=== PATIENT | female | born 1960 | race Caucasian/White ===

== ENCOUNTER 2018-02-02 09:49 | Inpatient (IN) | payer OTHER ==
--- NOTE | 2018-02-02 10:10 | PDOC ---
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 Lowe, with concern for osteomyelitis in her left foot. Pt denies pain or discomfort on arrival. She is a diabetic with peripheral neuropathy and a history of poor wound. Developed a open wound between fourth and fifth metatarsal approx. 3 weeks ago. MRI was obtained of extremity two weeks ago. Denies bleeding or discharge from the wound. Follows weekly with Dr. Lowe. MRI dated 01/22/2018 revealed likely osteomyelitis of proximal phalanx of fourth toe. PCP: Dr. Juan Miguel Leong Drying Room Attendant: Dr. Lowe Medical Hx: - Breast Cancer, s/p L mastectomy approx. 15 years ago - Diabetes - Chronic diabetic foot wound - Peripheral neuropathy Past History - Past Medical History Allergies/Adverse Reactions: Allergies Allergy/AdvReac Type Severity Reaction Status Date / Time Penicillins Allergy Unknown Verified 02/02/18 09:52 Home Medications: Ambulatory Orders Glimepiride [Amaryl -] 4 mg PO DAILY@0700 #30 tablet 03/15/15 Frzgz-Xtlnsnr-Jrirmchr Tablet 1 tab PO DAILY 12/05/15 Zinc 50 mg PO DAILY 06/10/17 Metformin HCl 500 mg PO BID 01/06/18 Vitamin D - 1,000 mg PO DAILY 01/06/18 Anemia: No Asthma: No Cancer: Yes (breast) Cardiac Disorders: No CVA: No COPD: No CHF: No Dementia: No Diabetes: Yes GI Disorders: No Disorders: No HTN: No Hypercholesterolemia: No Liver Disease: No Seizures: No Thyroid Disease: No Other medical history: chr diabetic foot wound - Surgical History Abdominal Surgery: Yes Appendectomy: No Cardiac Surgery: No Cholecystectomy: No Lung Surgery: No Neurologic Surgery: No Orthopedic Surgery: No - Suicide/Smoking/Psychosocial Hx Smoking Status: No Smoking History: Never smoked Have you smoked in the past 12 months: No Number of Cigarettes Smoked Daily: 0 Hx Alcohol Use: No Drug/Substance Use Hx: No Substance Use Type: None Review of Systems - Review of Systems Able to Perform ROS?: Yes Comments:: In addition to that documented in the HPI above, the additional ROS was obtained : Constitutional: Denies fevers or chills Eyes: Denies vision changes ENMT: Denies sore throat CV: Denies chest pain Resp: Denies SOB GI: Denies vomiting or diarrhea *Physical Exam - Vital Signs Last Vital Signs Temp Pulse Resp BP Pulse Ox 97.9 F 85 16 153/45 L 99 02/02/18 09:54 02/02/18 09:54 02/02/18 09:54 02/02/18 09:54 02/02/18 09:54 - Physical Exam Comments: Constitutional: Well-developed, well-nourished female in no acute distress or obvious discomfort. Found semi-fowlers in hospital bed. Alert and oriented x4. Answered all questions appropriately and completely. Speech was non-labored, non -pressured. HEENT: Normocephalic. No obvious external signs of trauma. Hearing grossly normal. No nasal discharge. Neck is supple, trachea is midline. Cardiovascular: Regular rate and regular rhythm. No murmur, rubs, clicks, or gallops. Peripheral pulses: Radial pulses full. Respiratory: Breathing unlabored. Equal chest rise and fall. Clear to auscultation bilaterally. No stridor, no wheezing, no rhonchi. Neuro: Alert and oriented. Moving all four extremities spontaneously. Skin: Warm and dry. 2-3mm circular wound between left 4th and 5th metatarsals with devitalized tissue. No bleeding, purulent discharge, warmth, or overlying cellulitis lesions. No lymphatic streaking. Psych: Affect: appropriate. Mood: normal. ED Treatment Course - LABORATORY CBC & Chemistry Diagram: 02/02/18 10:59 02/02/18 10:59 Medical Decision Making - Medical Decision Making *Reviewed vital signs, nursing notes, and prior visit documentation (if available). Dr. Lowe called ED and prior to pts arrival. Requested CBC, CMP, ESR, CRP , and pre-op labs. Additionally, requested the pt NOT be started on antibiotics. 11:35 Telephone page sent to Dr. Leong for admission. Type and screen hemolyzed. Reordered. 12:[address] Leong regarding admission. Will contact Dr. Lowe and will call back. 13:[address] Leong. States his partner, Dr. Edy Hung will admit the pt to med/surg on inpatient status. No additional orders dictated. *DC/Admit/Observation/Transfer Diagnosis at time of Disposition: Acute osteomyelitis of metatarsal bone of left foot - Discharge Dispostion Condition at time of disposition: Stable Decision to Admit order: Yes - Referrals Referrals: Lisa Newton [Primary Care Provider] - - Patient Instructions - Post Discharge Activity
--- NOTE | 2018-02-02 10:41 | PDOC ---
Attending Attestation - HPI HPI: 02/02/18 10:44 The patient is a 58 year old female, with a significant past medical history of left breast CA s/p left mastectomy, diabetes w/ neuropathy in bilateral LEs ( taking metformin and glipizide), who presents to the emergency department with a small wound between 4th and 5th metatarsal sent by wound care today for admission. She reports a history of wounds to this foot in the past. The patient denies chest pain, shortness of breath, headache and dizziness. The patient denies fever, chills, nausea, vomit, diarrhea and constipation. The patient denies dysuria, frequency, urgency and hematuria. Allergies: Penicillins Past surgical history: Hysterectomy, Mastectomy (left breast) Social history: Denies toxic habits - Medical Decision Making 02/02/18 10:44 Documentation prepared by Dorothea Tong, acting as medical coding technician for Wilman Santiago MD <Dorothea Tong - Last Filed: 02/02/18 10:44> - Resident Resident Name: Christopher Conley - ED Attending Attestation I have performed the following: I have examined & evaluated the patient, The case was reviewed & discussed with the resident, I agree w/resident's findings & plan, Exceptions are as noted - Physicial Exam PE: 02/02/18 14:43 Reviewed Residents PE - Medical Decision Making Patient sent to the emergency department for debridement for potential osteomyelitis Podiatry would like to hold on antibiotics at this time cultures will be obtained intraoperatively <Wilman Santiago - Last Filed: 02/02/18 14:43>
[2018-02-02 11:15] LABS: BASO % 0.9 % (0-2.0); EOS % 1.6 % (0-4.5); HEMATOCRIT 36.7 % (32.4-45.2); HEMOGLOBIN 12.5 GM/dL (10.7-15.3); LYMPH % 19.9 % (8-40); MCH 31.9 pg (25.7-33.7); MCHC 34.1 g/dl (32.0-36.0); MEAN CELL VOLUME 93.7 fl (80-96); MEAN PLT VOLUME 10.1 fl (7.5-11.1); MONO % 5.7 % (3.8-10.2); NEUT % 71.9 % (42.8-82.8); PLATELET COUNT 250 K/MM3 (134-434); RBC 3.92 M/mm3 (3.60-5.2); RDW 12.2 % (11.6-15.6)
[2018-02-02 11:31] LABS: INR 0.93 (0.83-1.09)
[2018-02-02 11:44] LABS: ALBUMIN 3.6 g/dl (3.4-5.0); ALK PHOS 124 U/L (45-117); ANION GAP 7 MMOL/L (8-16); BILIRUBIN,TOTAL 0.3 mg/dL (0.2-1); BLOOD UREA NITROGEN 19 mg/dL (7-18); CALCIUM 8.6 mg/dL (8.5-10.1); CHLORIDE 98 mmol/L (98-107); CO2 29 mmol/L (21-32); POTASSIUM 4.5 mmol/L (3.5-5.1); SGOT/AST 25 U/L (15-37); SGPT/ALT 41 U/L (13-61); SODIUM 133 mmol/L (136-145); TOT PROT 6.9 g/dl (6.4-8.2)
[2018-02-02 12:00] LABS: GLUCOSE,RANDOM 362 mg/dL (74-106)
[2018-02-02 13:07] LABS: ERYTHROCYTE SEDIMENTATION RATE 23 mm/hr (0-30)
[2018-02-02] MEDS ORDERED: ACETAMINOPHEN 325 MG TABLET (FP) PO PRN (19:18)
--- NOTE | 2018-02-02 19:22 | HP ---
Admitting History and Physical - Primary Care Physician PCP: Christian Leong - Admission History of Present Illness: pt seen/ examined in er. 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 Lowe, with concern for osteomyelitis in her left foot. Pt denies pain or discomfort on arrival. She is a diabetic with peripheral neuropathy and a history of poor wound. Developed a open wound between fourth and fifth metatarsal approx. 3 weeks ago. MRI was obtained of extremity two weeks ago. Denies bleeding or discharge from the wound. Follows weekly with Dr. Lowe. MRI dated 01/22/2018 revealed likely osteomyelitis of proximal phalanx of fourth toe. PCP: Dr. Juan Miguel Leong Labor Contractor: Dr. Lowe Medical Hx: - Breast Cancer, s/p L mastectomy approx. 15 years ago - Diabetes - Chronic diabetic foot wound - Peripheral neuropathy pt going for bone biopsy in am Awake/ comfortable denies pain History Source: Patient, Medical Record Limitations to Obtaining History: No Limitations - Past Medical History Heme/Onc: Yes: Cancer (left breast) Endocrine: Yes: Diabetes Mellitus - Past Surgical History Past Surgical History: Yes: Hysterectomy, Mastectomy (left breast) - Smoking History Smoking history: Never smoked Have you smoked in the past 12 months: No Aproximately how many cigarettes per day: 0 - Alcohol/Substance Use Hx Alcohol Use: No Home Medications - Allergies Allergies/Adverse Reactions: Allergies Allergy/AdvReac Type Severity Reaction Status Date / Time Penicillins Allergy Unknown Verified 02/02/18 09:52 - Home Medications Home Medications: Ambulatory Orders Glimepiride [Amaryl -] 4 mg PO DAILY@0700 #30 tablet 03/15/15 Nnxbd-Npijyev-Nvmpizch Tablet 1 tab PO DAILY 12/05/15 Zinc 50 mg PO DAILY 06/10/17 Metformin HCl 500 mg PO BID 01/06/18 Vitamin D - 1,000 mg PO DAILY 01/06/18 Family Disease History - Family Disease History Family Disease History: CA: Mother (kidney) Review of Systems - Review of Systems Constitutional: reports: No Symptoms Eyes: reports: No Symptoms HENT: reports: No Symptoms Neck: reports: No Symptoms Cardiovascular: reports: No Symptoms Respiratory: reports: No Symptoms Gastrointestinal: reports: No Symptoms Genitourinary: reports: No Symptoms Neurological: reports: No Symptoms Endocrine: reports: No Symptoms Psychiatric: reports: No Symptoms Physical Examination Vital Signs: Vital Signs Temperature 98.1 F 02/02/18 18:59 Pulse Rate 82 02/02/18 18:59 Respiratory Rate 20 02/02/18 18:59 Blood Pressure 164/90 02/02/18 18:59 O2 Sat by Pulse Oximetry (%) 98 02/02/18 18:07 Constitutional: Yes: No Distress, Calm Eyes: Yes: Conjunctiva Clear HENT: Yes: WNL Neck: Yes: WNL, Supple Cardiovascular: Yes: Regular Rate and Rhythm Respiratory: Yes: CTA Bilaterally Gastrointestinal: Yes: Normal Bowel Sounds, Soft Extremities: Yes: Erythema Edema: No Neurological: Yes: Alert Labs: CBC, BMP 02/02/18 10:59 02/02/18 10:59 Imaging - Results EKG: Pending Problem List - Problems (1) Acute osteomyelitis of metatarsal bone of left foot Code(s): M86.172 - OTHER ACUTE OSTEOMYELITIS, LEFT ANKLE AND FOOT (2) Hyperglycemia Code(s): R73.9 - HYPERGLYCEMIA, UNSPECIFIED (3) Uncontrolled type 2 diabetes mellitus Code(s): E11.65 - TYPE 2 DIABETES MELLITUS WITH HYPERGLYCEMIA Assessment/Plan Admit meds reviewed start on levemir uncontrolled diabetes ekg - hold po diabetic meds hold abx - before biopsy - consult i/d dvt prophylaxis will follow Discussed with i/d . will follow Discussed with pts pmd also. time spend approx 40 min in examining/ documenting and coordating care.
--- NOTE | 2018-02-02 19:48 | CON.ID ---
Consult Consult Specialty:: Infectious Diseases Reason for Consultation:: OM (L) 4th toe - History of Present Illness Chief Complaint: Nonhealing Wound (L) 4th toe History of Present Illness: Ms. Purcell is a 58 yr olf female diabetic with peripheral neuropathy and a history of poor wound. I had seen her previously and treated her for OM in the past. She reports that she developed an open wound between fourth and fifth metatarsal approx. 3 weeks ago. MRI was obtained of extremity two weeks ago, which revealed changes suggestive of OM (L) foot. She denies bleeding or discharge from the wound. She is admitted for bone biopsy. - History Source History Provided By: Patient, Medical Record Limitations to Obtaining History: No Limitations - Past Medical History Endocrine: Yes: Diabetes Mellitus - Past Surgical History Past Surgical History: Yes: Hysterectomy, Mastectomy (left breast) - Alcohol/Substance Use Hx Alcohol Use: No - Smoking History Smoking history: Never smoked Have you smoked in the past 12 months: No Aproximately how many cigarettes per day: 0 Home Medications - Allergies Allergies/Adverse Reactions: Allergies Allergy/AdvReac Type Severity Reaction Status Date / Time Penicillins Allergy Unknown Verified 02/02/18 09:52 - Home Medications Home Medications: Ambulatory Orders Glimepiride [Amaryl -] 4 mg PO DAILY@0700 #30 tablet 03/15/15 Flxmy-Dkpbpyb-Xthjzznt Tablet 1 tab PO DAILY 12/05/15 Zinc 50 mg PO DAILY 06/10/17 Metformin HCl 500 mg PO BID 01/06/18 Vitamin D - 1,000 mg PO DAILY 01/06/18 Family Disease History - Family Disease History Family Disease History: CA: Mother (kidney) Review of Systems - Review of Systems Constitutional: denies: Chills, Fever, Night Sweats Cardiovascular: denies: Chest Pain, Palpitations Respiratory: denies: Cough, SOB Gastrointestinal: denies: Abdominal Pain Integumentary: reports: Wound Physical Exam Vital Signs: Vital Signs Temperature 98.1 F 02/02/18 18:59 Pulse Rate 82 02/02/18 18:59 Respiratory Rate 20 02/02/18 18:59 Blood Pressure 164/90 02/02/18 18:59 O2 Sat by Pulse Oximetry (%) 98 02/02/18 18:07 Constitutional: Yes: Well Nourished Eyes: Yes: PERRL Neck: Yes: Supple Cardiovascular: Yes: Regular Rate and Rhythm Respiratory: Yes: CTA Bilaterally Gastrointestinal: Yes: Normal Bowel Sounds, Soft Extremities: Yes: Other ((L) foot with deformity. small ulcer interdigital space 4/5 (R) foot with deformity, eschar plantar sole 1st MT. No drainage or erythema) Labs: CBC, BMP 02/02/18 10:59 02/02/18 10:59 Imaging - Results X-ray: Report Reviewed Problem List - Problems (1) Diabetic foot ulcer Code(s): E11.621 - TYPE 2 DIABETES MELLITUS WITH FOOT ULCER; L97.509 - NON- PRESSURE CHRONIC ULCER OTH PRT UNSP FOOT W UNSP SEVERITY (2) Chronic osteomyelitis involving left ankle and foot Code(s): M86.672 - OTHER CHRONIC OSTEOMYELITIS, LEFT ANKLE AND FOOT Assessment/Plan Pt with DM, nonhealing Ulcer (L) foot OM on MRI Agree bone biopsy and c/s. No antibiotics for now, await c/s results.
[2018-02-02 21:08] VITALS: BMI 23.8
[2018-02-02] MEDS: HEPARIN NA (PORCINE) 5,000 UNITS/ML 1ML VIAL SQ SCH (21:51)
[2018-02-02] MEDS ORDERED: INSULIN (LEVEMIR) 100 UNITS/ML UNITS SQ SCH (22:00)
[2018-02-03] MEDS ORDERED: INSULIN (LEVEMIR) 100 UNITS/ML UNITS SQ ONE (06:19)
[2018-02-03] MEDS ORDERED: INSULIN SLIDING SCALE (NOVOLOG) 1 VIAL SQ SCH (07:00)
[2018-02-03 07:40] LABS: BASO % 0.9 % (0-2.0); EOS % 2.9 % (0-4.5); HEMATOCRIT 38.7 % (32.4-45.2); HEMOGLOBIN 12.9 GM/dL (10.7-15.3); LYMPH % 41.2 % (8-40); MCH 31.1 pg (25.7-33.7); MCHC 33.4 g/dl (32.0-36.0); MEAN CELL VOLUME 93.1 fl (80-96); MEAN PLT VOLUME 9.3 fl (7.5-11.1); MONO % 8.3 % (3.8-10.2); NEUT % 46.7 % (42.8-82.8); PLATELET COUNT 263 K/MM3 (134-434); RBC 4.16 M/mm3 (3.60-5.2); RDW 12.1 % (11.6-15.6); WHITE BLOOD COUNT 7.8 K/mm3 (4.0-10.0)
[2018-02-03 07:53] LABS: ALBUMIN 3.5 g/dl (3.4-5.0); ALK PHOS 121 U/L (45-117); ANION GAP 7 MMOL/L (8-16); BILIRUBIN,TOTAL 0.3 mg/dL (0.2-1); BLOOD UREA NITROGEN 16 mg/dL (7-18); CALCIUM 9.4 mg/dL (8.5-10.1); CHLORIDE 101 mmol/L (98-107); CO2 28 mmol/L (21-32); CREATININE 0.9 mg/dL (0.55-1.3); GLUCOSE,RANDOM 104 mg/dL (74-106); SGOT/AST 28 U/L (15-37); SGPT/ALT 38 U/L (13-61); SODIUM 137 mmol/L (136-145); TOT PROT 6.9 g/dl (6.4-8.2)
--- NOTE | 2018-02-03 09:42 | CONSULT ---
Consult - text type - Consultation Consultation Note: Podiatry Consultation: 58 year old neuropathic diabetic F well known to me from wound healing center presented last week with left 4th interspace diabetic ulcer, (+) osteomyelitis. Discussed treatment options based on MRI with patient at that time and we both agreed operative management with bone biopsy would be necessary. Notes ulcer is mostly improved but does note depth to the ulcer. Patient ambulates excessively on the feet. Denies F/V/N/C/SOB/CP. Afebrile. PMHx: DM, HTN, Breast CA s/p mastectomy Meds: noted ALL: PCN MEGHAN: L foot: pedal pulses palpable, TG wnl, CFT brisk to all toes. There is a fourth interspace diabetic ulcer that probes to capsule/proximal phalanx, no purulent drainage, no fluctuance, no streaking cellulitis, no signs of active infection. Minimal tenderness to palpation. MRI L foot: (+) bone marrow edema proximal phalanx fourth digit and fourth metatarsal head WBC: 7.8 Imp: 58 year old DM F with left fourth interspace diabetic ulcer (+) osteomyelitis 1. NPO. For OR today for bone biopsy, fourth digit arthroplasty 2. Will f/u OR cultures/path postoperatively 3. ID input appreciated 4. Will follow Tono Lowe DPM
[2018-02-03] MEDS: HEPARIN NA (PORCINE) 5,000 UNITS/ML 1ML VIAL SQ SCH ×2 (12:54→22:20)
--- NOTE | 2018-02-03 12:56 | PN ---
Progress Note (short form) - Note Progress Note: no complaints will be going for OR today for debridement, bone culture Vital Signs - 24 hr 02/02/18 02/02/18 02/02/18 17:57 18:07 18:59 Temperature 98 F 97.9 F 98.1 F Pulse Rate 82 Pulse Rate [ 67 77 Left Radial] Respiratory 16 18 20 Rate Blood Pressure 164/90 Blood Pressure 145/63 159/77 [Right Arm] O2 Sat by Pulse 99 98 Oximetry (%) 02/02/18 02/03/18 20:20 06:32 Temperature 98.1 F 98.1 F Pulse Rate 76 72 Pulse Rate [ Left Radial] Respiratory 18 20 Rate Blood Pressure 115/66 140/73 Blood Pressure [Right Arm] O2 Sat by Pulse 98 Oximetry (%) Current Medications Generic Name Dose Route Start Last Admin Trade Name Freq PRN Reason Stop Dose Admin Acetaminophen 650 mg 02/02/18 19:18 Tylenol - PO Q4H PRN PAIN LEVEL 1-5 Heparin Sodium (Porcine) 5,000 unit 02/02/18 22:00 02/03/18 12:54 Heparin - SQ Not Given BID [facility] Insulin Aspart 1 vial 02/03/18 07:00 02/03/18 06:07 Novolog Vial Sliding Scale - SQ Not Given BIDAC [facility] Protocol Insulin Detemir 10 units 02/02/18 22:00 02/02/18 21:52 Levemir Vial SQ 10 unit HS [facility] Administration Laboratory Results - last 24 hr 02/02/18 02/02/18 02/02/18 10:59 13:07 19:25 WBC RBC Hgb Hct MCV MCH MCHC RDW Plt Count MPV Absolute Neuts (auto) Neutrophils % Lymphocytes % Monocytes % Eosinophils % Basophils % Nucleated RBC % ESR 23 Sodium Potassium Chloride Carbon Dioxide Anion Gap BUN Creatinine Creat Clearance w eGFR POC Glucometer Random Glucose Calcium Total Bilirubin AST ALT Alkaline Phosphatase Total Protein Albumin Blood Type O POSITIVE O POSITIVE Antibody Screen Negative 02/02/18 02/03/18 02/03/18 21:49 06:09 06:30 WBC 7.8 RBC 4.16 Hgb 12.9 Hct 38.7 MCV 93.1 MCH 31.1 MCHC 33.4 RDW 12.1 Plt Count 263 MPV 9.3 Absolute Neuts (auto) 3.6 Neutrophils % 46.7 D Lymphocytes % 41.2 H D Monocytes % 8.3 Eosinophils % 2.9 D Basophils % 0.9 Nucleated RBC % 0 ESR Sodium Potassium Chloride Carbon Dioxide Anion Gap BUN Creatinine Creat Clearance w eGFR POC Glucometer 143 119 Random Glucose Calcium Total Bilirubin AST ALT Alkaline Phosphatase Total Protein Albumin Blood Type Antibody Screen 02/03/18 06:30 WBC RBC Hgb Hct MCV MCH MCHC RDW Plt Count MPV Absolute Neuts (auto) Neutrophils % Lymphocytes % Monocytes % Eosinophils % Basophils % Nucleated RBC % ESR Sodium 137 Potassium 4.0 Chloride 101 Carbon Dioxide 28 Anion Gap 7 L BUN 16 Creatinine 0.9 Creat Clearance w eGFR > 60 POC Glucometer Random Glucose 104 Calcium 9.4 Total Bilirubin 0.3 AST 28 ALT 38 Alkaline Phosphatase 121 H Total Protein 6.9 Albumin 3.5 Blood Type Antibody Screen S1 S2 RRR Lungs clear Abd- soft, NT foot--small open wound noted , no drainage PLAN for OR today ID eval noted not on antibiotics npo Problem List - Problems (1) Acute osteomyelitis of metatarsal bone of left foot Code(s): M86.172 - OTHER ACUTE OSTEOMYELITIS, LEFT ANKLE AND FOOT (2) Diabetic foot ulcer Code(s): E11.621 - TYPE 2 DIABETES MELLITUS WITH FOOT ULCER; L97.509 - NON- PRESSURE CHRONIC ULCER OTH PRT UNSP FOOT W UNSP SEVERITY (3) CKD stage 3 due to type 2 diabetes mellitus Code(s): E11.22 - TYPE 2 DIABETES MELLITUS W DIABETIC CHRONIC KIDNEY DISEASE; N18.3 - CHRONIC KIDNEY DISEASE, STAGE 3 (MODERATE)
[2018-02-03] MEDS ORDERED: ONDANSETRON 4 MG/2 ML VIAL IVPUSH PRN ×2 (14:02→16:11)
[2018-02-03] MEDS ORDERED: LIDOCAINE HCL/PF 2% SDV 5ML VIAL ONE (14:10)
[2018-02-03] MEDS ORDERED: PROPOFOL 20 ML ONE (14:10)
[2018-02-03] MEDS ORDERED: MIDAZOLAM HCL 2 MG/2 ML SINGLE DOSE VIAL ONE (14:10)
[2018-02-03] MEDS ORDERED: LACTATED RINGERS SOLUTION 1,000 ML IV SCH (14:15)
[2018-02-03] MEDS ORDERED: LIDOCAINE HCL 1%, 10 MG/ML (20ML VIAL) INF ONE (14:46)
[2018-02-03] MEDS ORDERED: CLINDAMYCIN PHOSPHATE 600 MG/4 ML VIAL ONE (14:58)
--- NOTE | 2018-02-03 16:03 | OP ---
Operative Note - Note: Operative Date: 02/03/18 Pre-Operative Diagnosis: Left foot diabetic ulcer with osteomyelitis 4th metatarsophalangeal joint and severe contracture of fourth digit left foot Operation: Left foot debridement of ulcer, fourth metatarsal head resection with bone biopsy, arthroplasty fourth toe Findings: see operative note Post-Operative Diagnosis: Same as Pre-op Surgeon: Jules Lowe Anesthesia: Local, MAC Specimens Removed: bone left foot Estimated Blood Loss (mls): 10 Instrument used (Debridements only): #15 blade scalpel and forceps Operative Report Dictated: Yes
[2018-02-03] MEDS ORDERED: oxyCODONE HCL 5 MG TABLET PO PRN (16:09)
[2018-02-03] MEDS ORDERED: ACETAMINOPHEN 325 MG TABLET (FP) PO PRN (16:11)
--- NOTE | 2018-02-03 16:20 | EKG ---
Test Reason : Blood Pressure : / mmHG Vent. Rate : 075 BPM Atrial Rate : 075 BPM P-R Int : 172 ms QRS Dur : 096 ms QT Int : 384 ms P-R-T Axes : 052 002 066 degrees QTc Int : 428 ms NORMAL SINUS RHYTHM NORMAL ECG WHEN COMPARED WITH ECG OF 10-NOV-2012 13:19, CRITERIA FOR SEPTAL INFARCT ARE NO LONGER PRESENT Confirmed by MD Alyson, Sukhdev ([id number]) on 02/03/2018 4:19:59 PM Referred By: Marquis TORRE Confirmed By:Sukhdev Shields MD
--- NOTE | 2018-02-03 17:08 | OP ---
DATE OF OPERATION: 02/03/2018 PREOPERATIVE DIAGNOSES: 1. Left foot diabetic ulcer. 2. Left foot osteomyelitis, 4th metatarsophalangeal joint. 3. Severely contracted hammertoe deformity, left 4th toe. POSTOPERATIVE DIAGNOSES: 1. Left foot diabetic ulcer. 2. Left foot osteomyelitis, 4th metatarsophalangeal joint. 3. Severely contracted hammertoe deformity, left 4th toe. PROCEDURE: 1. Left foot debridement of ulcer. 2. Left 4th metatarsal head resection with bone biopsy. 3. Left 4th digit arthroplasty. SURGEON: Jules Lowe DPM COUNCILPERSON: None. ANESTHESIA: IV sedation with local. HEMOSTASIS: Pneumatic ankle tourniquet at 250 mmHg. ESTIMATED BLOOD LOSS: 10 mL PATHOLOGY: Bone of left foot. COMPLICATIONS: None. DESCRIPTION OF PROCEDURE: The patient was brought to the operating room and placed on the operating table in the supine position. A pneumatic ankle tourniquet was applied to the patient's left ankle and set to 250 mmHg. Following induction of IV sedation, local anesthesia was achieved utilizing 9 mL of 1% lidocaine plain. The left foot was scrubbed, prepped and draped in the usual sterile fashion. Attention was directed to the left foot where first a severely contracted, rigid, 4th hammertoe deformity was appreciated, and second, a diabetic ulcer of the 4th interspace probing to bone was visualized and appreciated. I began by performing a 5-cm curvilinear incision overlying the 4th metatarsophalangeal joint. The incision was deepened using sharp and blunt dissection, taking care to retract vital neural and vascular structures. All bleeders were cauterized and ligated as needed. Next, I used a curved hemostat to isolate the bow-strung extensor tendon which was transected to reduce some of the hammertoe deformity and contracture. Next, a linear capsular and periosteal incision was made overlying the 4th metatarsophalangeal joint. Upon inspection, it was noted that there was severe contracture at the 4th metatarsophalangeal joint. The base of the 4th digit was subluxed onto the 4th metatarsal head. A sagittal saw was utilized to resect the 4th metatarsal head as well as the subluxed base of the 4th proximal phalanx. Portions of bone were sectioned, both for bone pathology and bone culture. A wound culture was obtained as well. Attention was directed to the 4th interspace ulcer where an excisional debridement was performed to the level of subcutaneous tissue utilizing a sterile 15 blade and forceps. Next, upon inspection, there was still contracture at the 4th proximal interphalangeal joint. A transverse capsular incision was made at the interphalangeal joint. The deep capsular and ligamentous structures were freed from the head of the proximal phalanx. The head of the proximal phalanx was resected utilizing a sagittal saw and sent to Pathology for analysis. The contracture was finally noted to be improved. Surgical site was copiously irrigated with sterile saline. The deep capsular structures were reapproximated and maintained utilizing 3-0 Vicryl. The deep capsular structures about the 4th toe were reapproximated using 4-0 Vicryl, and the skin was coapted utilizing 4-0 nylon in a simple interrupted suture fashion. Following conclusion of the procedure, the surgical site was covered with Xeroform, and a sterile compressive dressing was applied to the left foot, consisting of sterile gauze, Zelda, Kerlix, and an Roge wrap. The tourniquet deflated and immediate hyperemia was exhibited to the left foot. Patient tolerated the procedure and anesthesia well without complications. She was transferred from the operating room to the recovery unit with vital signs stable and neurovasculature intact to the left foot. ADWOA NELSON/[id number] cc: [facility]
[2018-02-03] MEDS: INSULIN SLIDING SCALE (NOVOLOG) 1 VIAL SQ SCH (18:04)
[2018-02-03] MEDS: LACTATED RINGERS SOLUTION 1,000 ML IV SCH ×2 (18:04→22:26)
[2018-02-03] MEDS ORDERED: INSULIN (LEVEMIR) 100 UNITS/ML UNITS SQ SCH (22:00)
[2018-02-04] MEDS: INSULIN SLIDING SCALE (NOVOLOG) 1 VIAL SQ SCH (06:17)
[2018-02-04] MEDS: HEPARIN NA (PORCINE) 5,000 UNITS/ML 1ML VIAL SQ SCH (10:49)
--- NOTE | 2018-02-04 11:03 | PN ---
Progress Note (short form) - Note Progress Note: 58 y/o female seend 1 day s/p left 4th MT head resection with 4th digit arthroplasty for osteo of the 4th MT head. Patient is up in bed with no complaints of pain overnight. States she is feeling well at this time. Denies any overnight events. Just returned from having xrays of left foot. Denies any f /c/n//vsob. O: LLE dressing cdi, minimal strikethrough, surgical incision site coapted with sutures in tact, mild edema, mild ertyeham, mild eccymosis consistent with post surgical status, on right foot plantar submet 1 healed ulceration with minimal erythema and dry scaly skin surrounding, no drainage, no purulence, no signs of active infection A: s/p Left 4th MT head resection 4th digit AP P: Patient evaluated and charts reviewed Discussed findigns with patient xrays reviewed; good resection of bone of 4th MT and AP of 4th digit Will require further surgical intervention on the foot due to severe deformity but will be managed outpatient once osteo is completely resolved. F/u Path F/u Cultures Labs WNL Will continue to follow while admitted and will have f/u at wound care center upon discharge.
--- NOTE | 2018-02-04 11:54 | DS ---
Physical Examination Vital Signs: Vital Signs Temperature 98.0 F 02/04/18 10:00 Pulse Rate 85 02/04/18 10:00 Respiratory Rate 20 02/04/18 10:00 Blood Pressure 152/74 02/04/18 10:00 O2 Sat by Pulse Oximetry (%) 98 02/03/18 16:30 Constitutional: Yes: No Distress, Calm Cardiovascular: Yes: Regular Rate and Rhythm Respiratory: Yes: CTA Bilaterally Gastrointestinal: Yes: Normal Bowel Sounds, Soft. No: Tenderness Edema: No Labs: CBC, BMP 02/03/18 06:30 02/03/18 06:30 Discharge Summary Reason For Visit: ACUTE OSTEOMYELITIS OF METATARSAL BONE OF L FOOT Current Active Problems Acute osteomyelitis of metatarsal bone of left foot (Acute) Diabetic foot ulcer (Acute) Hospital Course: Pt sent by Ring Cutter Lathe Operator for admission for debridement of foot wound Pt underwent debridement and bone culture and biopsy on 02/03/18 Pt feels well stable for dc home -- will follow up with [employer] C[employer] Lathe Operator with regards to antibiotics and further management of osteomyelitis Condition: Stable - Instructions Referrals: Lisa Newton [Primary Care Provider] - Romel Jha MD [Staff Physician] - Disposition: HOME - Home Medications Comprehensive Discharge Medication List: Ambulatory Orders Glimepiride [Amaryl -] 4 mg PO DAILY@0700 #30 tablet 03/15/15 Zdjkw-Fqfuczi-Qprecefj Tablet 1 tab PO DAILY 12/05/15 Zinc 50 mg PO DAILY 06/10/17 Metformin HCl 500 mg PO BID 01/06/18 Vitamin D - 1,000 mg PO DAILY 01/06/18
[2018-02-04 13:47] VITALS: BP 155/57; PULSE 84; TEMP 99
--- NOTE | 2018-02-06 18:06 | PATH ---
Surgical Pathology Report Patient Name: EBENEZER AVILA [facility]. Rec. #: [id number] /Age/Gender: 1960 (Age: 58) / F Account: [id number] Location: [address] [place] [address]/[facility] Taken: 02/02/2018 Received: 02/04/2018 Reported: 02/06/2018 Physicians: Edy Hung M.D. Specimen(s) Received A: BONE FROM LEFT FOOT B: PROXIMAL BONE FROM LEFT FOOT Clinical History Contracted hammertoe/osteomyelitis left foot Final Diagnosis A. FOOT, LEFT, BONE, EXCISION: FRAGMENTS OF BONE WITH FATTY MARROW AND FOCAL REACTIVE CHANGES. NO ACUTE OSTEOMYELITIS IDENTIFIED. B. FOOT, LEFT, PROXIMAL BONE, EXCISION: BONE WITH REACTIVE CHANGES. NO ACUTE OSTEOMYELITIS IDENTIFIED. Electronically Signed Mandie Albert M.D. Gross Description A. Received in formalin labeled "bone from left foot," is a 2.8 x 2.3 x 1.0 cm aggregate of 4 bautista, irregular portions of bone. Hot Punch Press Operator sections are submitted in one cassette, following decalcification. B. Received in formalin labeled "proximal bone left foot," are 2 bautista portions of bone measuring 0.3 x 0.2 x 0.2 cm and 0.7 x 0.6 x 0.3 cm. The specimen is submitted in toto in one cassette, following decalcification. 02/05/201802/05/2018
== END 2018-02-04 15:10 | disposition home or self-care (01) | DRG 623 ==
LOC: JER 09:49 → JERBED 12:48 → J6S 18:54
PROVIDERS: ADMIT Internal Medicine; ATTEND Internal Medicine
PROC: 0QBP0ZX Excision of Left Metatarsal, Open Approach, Diagnostic (ICD-10-PCS; 2018-02-03)
PROC: 0SQQ0ZZ Repair Left Toe Phalangeal Joint, Open Approach (ICD-10-PCS; 2018-02-03)
PROC: 0JBR0ZZ Excision of Left Foot Subcutaneous Tissue and Fascia, Open Approach (ICD-10-PCS; principal; 2018-02-03 13:00)
DX: E11.69 Type 2 diabetes mellitus with other specified complication (principal); M86.172 Other acute osteomyelitis, left ankle and foot; L97.528 Non-pressure chronic ulcer of other part of left foot with other specified severity; Z85.3 Personal history of malignant neoplasm of breast; E11.42 Type 2 diabetes mellitus with diabetic polyneuropathy; E11.65 Type 2 diabetes mellitus with hyperglycemia; E11.621 Type 2 diabetes mellitus with foot ulcer; E11.22 Type 2 diabetes mellitus with diabetic chronic kidney disease; N18.3 Chronic kidney disease, stage 3 (moderate); M20.42 Other hammer toe(s) (acquired), left foot; M24.575 Contracture, left foot
CPT/HCPCS: 36415; 73630-TC-LT; 80053; 82962; 85025; 85610; 85651; 85730; 86140; 86850; 86900; 86901; 87070; 87075; 87081; 87186; 87205; 88305-TC; 88311-TC; 93005; 93010; 94760; 99284-25; J1644

== ENCOUNTER 2018-06-09 14:39 | Inpatient (IN) | payer OTHER ==
--- NOTE | 2018-06-09 14:44 | PDOC ---
Rapid Medical Evaluation Medical Evaluation: Allergies Allergy/AdvReac Type Severity Reaction Status Date / Time Penicillins Allergy Unknown Verified 02/02/18 09:52 I have performed a brief in-person evaluation of this patient. The patient presents with a chief complaint of: Hx of DM, Sent by Dr. Lowe for R foot infection, recently admitted for L foot OM 01/2018 s/p debridement Pertinent physical exam findings: In NAD, R foot wrapped (pt does not want to remove wrapped in triage) I have ordered the following: Labs The patient will proceed to the ED for further evaluation. 06/09/18 14:42
[2018-06-09 15:08] LABS: BASO % 1.1 % (0-2.0); EOS % 0.7 % (0-4.5); HEMATOCRIT 35.6 % (32.4-45.2); HEMOGLOBIN 12.2 GM/dL (10.7-15.3); LYMPH % 15.7 % (8-40); MCH 32.2 pg (25.7-33.7); MCHC 34.3 g/dl (32.0-36.0); MEAN CELL VOLUME 93.8 fl (80-96); MEAN PLT VOLUME 9.5 fl (7.5-11.1); MONO % 7.4 % (3.8-10.2); NEUT % 75.1 % (42.8-82.8); PLATELET COUNT 296 K/MM3 (134-434); RBC 3.79 M/mm3 (3.60-5.2); RDW 12.1 % (11.6-15.6); WHITE BLOOD COUNT 11.9 K/mm3 (4.0-10.0)
--- NOTE | 2018-06-09 15:24 | PDOC ---
History of Present Illness - General Chief Complaint: Wound Stated Complaint: SENT BY PCP/FOOT INFECTION Time Seen by Provider: 06/09/18 14:42 History Source: Patient - History of Present Illness Lower Extremity Pain Location: right: foot Past History - Past Medical History Allergies/Adverse Reactions: Allergies Allergy/AdvReac Type Severity Reaction Status Date / Time Penicillins Allergy Unknown Verified 02/02/18 09:52 Home Medications: Ambulatory Orders Cholecalciferol (Vitamin D3) [Vitamin D3] 1,000 unit PO DAILY 06/09/18 Glimepiride [Amaryl -] 4 mg PO DAILY@0700 06/09/18 Metformin HCl [Glucophage] 500 mg PO BID 06/09/18 Multivit-Min/Iron Fum/Folic AC [Gvcwp-Zyueeru-Zifitngr Tablet] 1 each PO DAILY 06/09/18 Mupirocin Ointment [Bactroban Ointment (For Decolonization) -] 1 applic TP BID 06/09/18 Zinc 50 mg PO DAILY 06/09/18 Anemia: No Asthma: No Cancer: Yes (left breast) Cardiac Disorders: No CVA: No COPD: No CHF: No Dementia: No Diabetes: Yes GI Disorders: No Disorders: No HTN: No Hypercholesterolemia: No Liver Disease: No Seizures: No Thyroid Disease: No - Surgical History Abdominal Surgery: No Appendectomy: No Cardiac Surgery: No Cholecystectomy: No Lung Surgery: No Neurologic Surgery: No Orthopedic Surgery: No - Suicide/Smoking/Psychosocial Hx Smoking Status: No Smoking History: Unknown if ever smoked Have you smoked in the past 12 months: No Number of Cigarettes Smoked Daily: 0 Hx Alcohol Use: No Drug/Substance Use Hx: No Substance Use Type: None Review of Systems - Review of Systems Constitutional: No: Chills, Fever, Malaise Integumentary: Yes: Erythema *Physical Exam - Vital Signs Last Vital Signs Temp Pulse Resp BP Pulse Ox 97.9 F 93 H 20 129/45 L 100 06/09/18 14:43 06/09/18 14:43 06/09/18 14:43 06/09/18 14:43 06/09/18 14:43 - Physical Exam General Appearance: Yes: Appropriately Dressed. No: Apparent Distress HEENT: positive: Normal Voice Neck: positive: Supple Respiratory/Chest: negative: Respiratory Distress Extremity: positive: Other (chronic appearing ulcers over dorsum of R 3rd/4th toes and to plantar aspect of 1st metatarsal w/ erythema to toes extending into distal foot, pedal pulses intact) Integumentary: positive: Dry, Warm Neurologic: positive: Fully Oriented, Alert, Normal Mood/Affect Moderate Sedation - Procedure Monitoring Vital Signs: Procedure Monitoring Vital Signs Temperature 97.9 F 06/09/18 14:43 Pulse Rate 93 H 06/09/18 14:43 Respiratory Rate 20 06/09/18 14:43 Blood Pressure 129/45 L 06/09/18 14:43 O2 Sat by Pulse Oximetry (%) 100 06/09/18 14:43 ED Treatment Course - LABORATORY CBC & Chemistry Diagram: 06/09/18 14:54 06/09/18 14:59 - ADDITIONAL ORDERS Additional order review: 06/09/18 14:54 RBC 3.79 MCV 93.8 MCHC 34.3 RDW 12.1 MPV 9.5 Neutrophils % 75.1 D Lymphocytes % 15.7 D Monocytes % 7.4 Eosinophils % 0.7 Basophils % 1.1 Medical Decision Making - Medical Decision Making 06/09/18 15:20 58 yo F, hx of L breast ca s/p L mastectomy, NIDDM, recurrent LLE cellulitis, s/ p admission for OM of L foot s/p debridement w/ MRSA on wound cx, here w/ pain and redness to R foot, worsneign x 5 days, no f/c. Seen by Dr Lowe of podiatry this am and sent to ED See exam Cellulitis of RLE Recurrent No f/c Stable and non-toxic lisbet +MRSA on wound cx 02/08 -labs -XR -admit for IV abx 06/09/18 17:09 Case d/w Dr Arreola and pt admitted to Dr Snow 06/09/18 17:09 *DC/Admit/Observation/Transfer Diagnosis at time of Disposition: Cellulitis of right foot - Discharge Dispostion Condition at time of disposition: Fair Decision to Admit order: Yes - Referrals - Patient Instructions - Post Discharge Activity
[2018-06-09] MEDS ORDERED: VANCOMYCIN 1,000 MG in DEXTROSE 5%-WATER - 250 ML IVPB ONE (15:27)
[2018-06-09] MEDS ORDERED: VANCOMYCIN 1 GRAM (PRE-DOCKED) 1,000 MG/250 ML BAG IVPB ONE (16:04)
[2018-06-09] MEDS ORDERED: KETOROLAC TROMETHAMINE 30 MG/1 ML VIAL IVPUSH ONE (16:05)
[2018-06-09] MEDS ORDERED: KETOROLAC TROMETHAMINE 30 MG/1 ML VIAL ONE (16:07)
[2018-06-09 18:08] LABS: ANION GAP 10 MMOL/L (8-16); BLOOD UREA NITROGEN 30 mg/dL (7-18); CALCIUM 9.2 mg/dL (8.5-10.1); CHLORIDE 95 mmol/L (98-107); CO2 25 mmol/L (21-32); CREATININE 1.5 mg/dL (0.55-1.3); POTASSIUM 4.2 mmol/L (3.5-5.1); SODIUM 131 mmol/L (136-145)
[2018-06-09] MEDS ORDERED: metFORMIN HCL 500 MG TABLET (FP) ONE (18:18)
[2018-06-09] MEDS: metFORMIN HCL 500 MG TABLET (FP) PO SCH (18:18)
[2018-06-09 18:22] LABS: GLUCOSE,RANDOM 415 mg/dL (74-106)
--- NOTE | 2018-06-09 18:31 | HP ---
Admitting History and Physical - Primary Care Physician PCP: Christian Leong - Admission Chief Complaint: feet ulcers History of Present Illness: ER History-- 58 yo F, hx of L breast ca s/p L mastectomy, NIDDM, recurrent LLE cellulitis, s/ p admission for OM of L foot s/p debridement w/ MRSA on wound cx, here w/ pain and redness to R foot, worsening x 5 days, no f/c. Seen by Dr Lowe of podiatry this am and sent to ED Pt examined by me in the ER Pt has been having non healing right foot ulcer for a couple months now- worse for a couple of days. As per her General Practice- Dr Lundberg- he advised to take Levaquin on a as needed basis for feet ulcers/toe ulcer She does not have pain Today in the wound center, Dr Lowe debrided the wounds and advised her to go to ER for evaluation/admission/iv antibiotics History Source: Patient Limitations to Obtaining History: No Limitations - Past Medical History Cardiovascular: Yes: HTN Heme/Onc: Yes: Cancer (left breast) Endocrine: Yes: Diabetes Mellitus - Past Surgical History Past Surgical History: Yes: Hysterectomy, Mastectomy (left breast) - Smoking History Smoking history: Unknown if ever smoked Have you smoked in the past 12 months: No Aproximately how many cigarettes per day: 0 - Alcohol/Substance Use Hx Alcohol Use: No Home Medications - Allergies Allergies/Adverse Reactions: Allergies Allergy/AdvReac Type Severity Reaction Status Date / Time Penicillins Allergy Unknown Verified 02/02/18 09:52 - Home Medications Home Medications: Ambulatory Orders Cholecalciferol (Vitamin D3) [Vitamin D3] 1,000 unit PO DAILY 06/09/18 Glimepiride [Amaryl -] 4 mg PO DAILY@0700 06/09/18 Metformin HCl [Glucophage] 500 mg PO BID 06/09/18 Multivit-Min/Iron Fum/Folic AC [Cwgsx-Ipixybm-Bctmfwun Tablet] 1 each PO DAILY 06/09/18 Mupirocin Ointment [Bactroban Ointment (For Decolonization) -] 1 applic TP BID 06/09/18 Zinc 50 mg PO DAILY 06/09/18 Family Disease History - Family Disease History Family Disease History: CA: Mother (kidney) Review of Systems - Review of Systems Constitutional: denies: Chills, Fever, Weakness Integumentary: reports: Erythema, Wound Physical Examination Vital Signs: Vital Signs Temperature 97.9 F 06/09/18 14:43 Pulse Rate 93 H 06/09/18 14:43 Respiratory Rate 20 06/09/18 14:43 Blood Pressure 129/45 L 06/09/18 14:43 O2 Sat by Pulse Oximetry (%) 100 06/09/18 14:43 Constitutional: Yes: No Distress, Calm Cardiovascular: Yes: Regular Rate and Rhythm, Murmur Respiratory: Yes: CTA Bilaterally Gastrointestinal: Yes: Normal Bowel Sounds, Soft. No: Tenderness Extremities: Yes: Other (erythema and edema of 2nd right toe, ulcer on 2nd toe - right and ulcer on sole of right foot) Edema: No Labs: CBC, BMP 06/09/18 14:54 06/09/18 14:59 Imaging - Results X-ray: Pending Problem List - Problems (1) Cellulitis of right foot Code(s): L03.115 - CELLULITIS OF RIGHT LOWER LIMB (2) Diabetic foot ulcer Code(s): E11.621 - TYPE 2 DIABETES MELLITUS WITH FOOT ULCER; L97.509 - NON- PRESSURE CHRONIC ULCER OTH PRT UNSP FOOT W UNSP SEVERITY (3) Hyperglycemia Code(s): R73.9 - HYPERGLYCEMIA, UNSPECIFIED (4) Uncontrolled type 2 diabetes mellitus Code(s): E11.65 - TYPE 2 DIABETES MELLITUS WITH HYPERGLYCEMIA (5) CKD stage 3 due to type 2 diabetes mellitus Code(s): E11.22 - TYPE 2 DIABETES MELLITUS W DIABETIC CHRONIC KIDNEY DISEASE; N18.3 - CHRONIC KIDNEY DISEASE, STAGE 3 (MODERATE) Assessment/Plan PLAN IV fluids IV antibiotics Check A1C Cultures wound ID eval and Podiatry eval ordered bone scan continue with meds check BGM, insulin sliding scale Lovenox sc for DVT prophylaxis
[2018-06-09] MEDS ORDERED: ACETAMINOPHEN 325 MG TABLET (FP) PO PRN (18:41)
[2018-06-09] MEDS: SODIUM CHLORIDE 0.45% 1,000 ML IV SCH (18:43)
[2018-06-09] MEDS ORDERED: ERTAPENEM SODIUM 1 GM VIAL ONE (20:04)
[2018-06-09] MEDS: ERTAPENEM SODIUM 1 GM in SODIUM CHLORIDE 50 ML IVPB SCH (23:39)
[2018-06-09] MEDS: INSULIN SLIDING SCALE (NOVOLOG) 1 VIAL SQ SCH (23:53)
[2018-06-10] MEDS: SODIUM CHLORIDE 0.45% 1,000 ML IV SCH (04:42)
[2018-06-10] MEDS: INSULIN SLIDING SCALE (NOVOLOG) 1 VIAL SQ SCH ×4 (06:38→21:01)
[2018-06-10] MEDS: metFORMIN HCL 500 MG TABLET (FP) PO SCH ×2 (06:39→16:25)
[2018-06-10 07:39] LABS: BASO % 0.8 % (0-2.0); EOS % 3.8 % (0-4.5); HEMATOCRIT 33.9 % (32.4-45.2); HEMOGLOBIN 11.9 GM/dL (10.7-15.3); LYMPH % 17.6 % (8-40); MCH 32.3 pg (25.7-33.7); MEAN CELL VOLUME 92.2 fl (80-96); MEAN PLT VOLUME 9.2 fl (7.5-11.1); MONO % 8.6 % (3.8-10.2); NEUT % 69.2 % (42.8-82.8); PLATELET COUNT 232 K/MM3 (134-434); RBC 3.68 M/mm3 (3.60-5.2); RDW 11.8 % (11.6-15.6); WHITE BLOOD COUNT 8.7 K/mm3 (4.0-10.0)
[2018-06-10 08:27] LABS: ALK PHOS 130 U/L (45-117); ANION GAP 7 MMOL/L (8-16); BILIRUBIN,TOTAL 0.6 mg/dL (0.2-1); BLOOD UREA NITROGEN 29 mg/dL (7-18); CHLORIDE 99 mmol/L (98-107); CO2 25 mmol/L (21-32); CREATININE 1.1 mg/dL (0.55-1.3); SGOT/AST 13 U/L (15-37); SGPT/ALT 19 U/L (13-61); SODIUM 131 mmol/L (136-145); TOT PROT 6.4 g/dl (6.4-8.2)
[2018-06-10 08:42] LABS: GLUCOSE,RANDOM 308 mg/dL (74-106)
[2018-06-10] MEDS ORDERED: INSULIN (NOVOLOG) ASPART 100 UNITS/ML 10ML VIAL ONE (08:50)
[2018-06-10] MEDS: ERTAPENEM SODIUM 1 GM in SODIUM CHLORIDE 50 ML IVPB SCH (09:32)
[2018-06-10] MEDS: GLIMEPIRIDE 4 MG TABLET (FP) PO SCH (09:32)
[2018-06-10] MEDS: MULTIVITAMINS (DAILY MVI) TABLET (FP) PO SCH (09:32)
[2018-06-10] MEDS: ENOXAPARIN NA (PORCINE) 30 MG/0.3 ML DISP.SYRIN SQ SCH (09:33)
--- NOTE | 2018-06-10 10:22 | PN ---
Progress Note (short form) - Note Progress Note: sugars high , A1C 11 Has no pain Vital Signs - 24 hr 06/09/18 06/09/18 06/10/18 14:43 14:47 03:22 Temperature 97.9 F 98.6 F Pulse Rate 93 H Pulse Rate [ 82 Apical] Respiratory 20 22 H Rate Blood Pressure 129/45 L Blood Pressure 153/54 L [Right Arm] O2 Sat by Pulse 100 99 97 Oximetry (%) 06/10/18 06/10/18 04:00 05:14 Temperature 97.7 F Pulse Rate 78 Pulse Rate [ Apical] Respiratory 18 Rate Blood Pressure 151/72 Blood Pressure [Right Arm] O2 Sat by Pulse 97 Oximetry (%) Current Medications Generic Name Dose Route Start Last Admin Trade Name Freq PRN Reason Stop Dose Admin Acetaminophen 650 mg 06/09/18 18:41 Tylenol - PO Q6H PRN FEVER Enoxaparin Sodium 30 mg 06/10/18 10:00 06/10/18 09:33 Lovenox - SQ 30 mg DAILY CARLOS Administration Glimepiride 4 mg 06/10/18 07:00 06/10/18 09:32 Amaryl - PO 4 mg DAILY@0700 CARLOS Administration Sodium Chloride 1,000 mls @ 83 mls/hr 06/09/18 18:45 06/10/18 04:42 1/2 Normal Saline IV 83 mls/hr ASDIR CARLOS Administration Ertapenem 1 gm/ Sodium 50 mls @ 100 mls/hr 06/09/18 19:45 06/10/18 09:32 Chloride IVPB 100 mls/hr DAILY CARLOS Administration Insulin Aspart 1 vial 06/09/18 22:00 06/10/18 06:38 Novolog Vial Sliding Scale - SQ 8 units ACHS CARLOS Administration Protocol Metformin HCl 500 mg 06/09/18 16:45 06/10/18 06:39 Glucophage - PO 500 mg BIDAC CARLOS Administration Multivitamins/Minerals/Vitamin C 1 tab 06/10/18 10:00 06/10/18 09:32 Tab-A-Vit - PO 1 tab DAILY CARLOS Administration Laboratory Results - last 24 hr 06/09/18 06/09/18 06/09/18 14:54 14:54 14:54 WBC 11.9 H RBC 3.79 Hgb 12.2 Hct 35.6 MCV 93.8 MCH 32.2 MCHC 34.3 RDW 12.1 Plt Count 296 MPV 9.5 Absolute Neuts (auto) 9.0 H Neutrophils % 75.1 D Lymphocytes % 15.7 D Monocytes % 7.4 Eosinophils % 0.7 Basophils % 1.1 Nucleated RBC % 0 ESR 53 H Sodium Potassium Chloride Carbon Dioxide Anion Gap BUN Creatinine Creat Clearance w eGFR POC Glucometer Random Glucose Hemoglobin A1c % 11.6 H Calcium Total Bilirubin AST ALT Alkaline Phosphatase C-Reactive Protein Total Protein Albumin 06/09/18 06/09/18 06/09/18 14:59 17:39 23:51 WBC RBC Hgb Hct MCV MCH MCHC RDW Plt Count MPV Absolute Neuts (auto) Neutrophils % Lymphocytes % Monocytes % Eosinophils % Basophils % Nucleated RBC % ESR Sodium 131 L Potassium 4.2 Chloride 95 L Carbon Dioxide 25 Anion Gap 10 BUN 30 H Creatinine 1.5 H Creat Clearance w eGFR 35.42 POC Glucometer 420 373 Random Glucose 415 H* Hemoglobin A1c % Calcium 9.2 Total Bilirubin AST ALT Alkaline Phosphatase C-Reactive Protein 1.9 H Total Protein Albumin 06/10/18 06/10/18 06/10/18 06:00 06:37 07:10 WBC 8.7 RBC 3.68 Hgb 11.9 Hct 33.9 MCV 92.2 MCH 32.3 MCHC 35.0 RDW 11.8 Plt Count 232 D MPV 9.2 Absolute Neuts (auto) 6.0 Neutrophils % 69.2 Lymphocytes % 17.6 Monocytes % 8.6 Eosinophils % 3.8 D Basophils % 0.8 Nucleated RBC % 0 ESR Sodium 131 L Potassium 4.0 Chloride 99 Carbon Dioxide 25 Anion Gap 7 L BUN 29 H Creatinine 1.1 Creat Clearance w eGFR 50.67 POC Glucometer 318 Random Glucose 308 H* Hemoglobin A1c % Calcium 9.0 Total Bilirubin 0.6 AST 13 L ALT 19 Alkaline Phosphatase 130 H C-Reactive Protein Total Protein 6.4 Albumin 3.0 L S1 S2RRR Lungs clear Abd- soft, NT Edema right foot wounds PLAN Pt does not want to take Insulin Will consult Endocrinology continue with antibiotics will cancel bone scan and order MRI right foot to r/o osteomyelitis Problem List - Problems (1) Cellulitis of right foot Code(s): L03.115 - CELLULITIS OF RIGHT LOWER LIMB (2) Diabetic foot ulcer Code(s): E11.621 - TYPE 2 DIABETES MELLITUS WITH FOOT ULCER; L97.509 - NON- PRESSURE CHRONIC ULCER OTH PRT UNSP FOOT W UNSP SEVERITY (3) Hyperglycemia Code(s): R73.9 - HYPERGLYCEMIA, UNSPECIFIED (4) Uncontrolled type 2 diabetes mellitus Code(s): E11.65 - TYPE 2 DIABETES MELLITUS WITH HYPERGLYCEMIA (5) CKD stage 3 due to type 2 diabetes mellitus Code(s): E11.22 - TYPE 2 DIABETES MELLITUS W DIABETIC CHRONIC KIDNEY DISEASE; N18.3 - CHRONIC KIDNEY DISEASE, STAGE 3 (MODERATE)
--- NOTE | 2018-06-10 12:05 | EKG ---
Test Reason : Blood Pressure : / mmHG Vent. Rate : 084 BPM Atrial Rate : 084 BPM P-R Int : 172 ms QRS Dur : 086 ms QT Int : 368 ms P-R-T Axes : 059 025 095 degrees QTc Int : 434 ms NORMAL SINUS RHYTHM LOW VOLTAGE QRS SEPTAL INFARCT , AGE UNDETERMINED ABNORMAL ECG WHEN COMPARED WITH ECG OF 03-FEB-2018 11:11, SEPTAL INFARCT IS NOW PRESENT Confirmed by HUMBERTO ALBERT, OVIDIO ([id number]) on 06/10/2018 12:04:39 PM Referred By: Confirmed By:OVIDIO PAUL MD
--- NOTE | 2018-06-10 12:24 | CONSULT ---
Consult - text type - Consultation Consultation Note: Podiatry Consultation: 58 year old diabetic female well known to me from wound healing center presented yesterday for outpatient appointment with bilateral diabetic foot ulcers. The patient notes having wounds for quite some time, she had not been to the wound healing center for 3 months. She notes missing her appointments due to family issues. She presented with worsening ulcers and cellulitis of the foot which prompted ED admission. Currently afebrile. MEGHAN: Pedal pulses palpable, TG wnl, CFT brisk to all toes bilaterally. On the right foot, there is a diabetic ulcer fourth interspace fibrotic base, probes to capsule, no purulence, no fluctuance. There is a dorsal third digit diabetic ulcer fibrogranular base regular borders, no probing to bone, no purulence, no fluctuance. There is a dorsal second digit diabetic ulcer with fibrogranular base, probes to capsule, significant digital erythema. there is moderate erythema to the foot. There is no soft tissue crepitus. On the left foot there is a sub-first metatarsal diabetic ulcer with fibrogranular base, hyperkeratotic edges, no probing to bone, no purulence, no fluctuance, no cellulitis, no signs of infection. R foot XR: no cortical destruction Imp: 58 year old diabetic female with bilateral diabetic foot ulcers 1. IV abx per ID 2. Local wound care 3. F/u MRI 4. Will follow Tono Lowe DPM
--- NOTE | 2018-06-10 12:59 | CON.ID ---
Consult Consult Specialty:: infectious diseases Referred by:: Reason for Consultation:: Non healing ulcer of the foot - History of Present Illness Chief Complaint: wounds on the leg History of Present Illness: 58 yo F, hx of L breast ca s/p L mastectomy, NIDDM, recurrent LLE cellulitis, s/ p admission for OM of L foot s/p debridement w/ MRSA on wound cx, here w/ pain and redness to R foot, worsening x 5 days, no f/c. Seen by Dr Lowe of podiatry this am and sent to ED patient has this on going problem for a long time and has received debridement and treatment before according to the patient it has never healed and because of that redness and swelling patient came to the hospital currently patient is comfortable denies any fever spoke with the podiatry team it seems patient has been taking intermittent levaquin - History Source History Provided By: Patient Limitations to Obtaining History: No Limitations - Past Medical History Cardio/Vascular: Yes: HTN ...: No Endocrine: Yes: Diabetes Mellitus - Past Surgical History Past Surgical History: Yes: Hysterectomy, Mastectomy (left breast) - Alcohol/Substance Use Hx Alcohol Use: No - Smoking History Smoking history: Never smoked Have you smoked in the past 12 months: No Aproximately how many cigarettes per day: 0 Home Medications - Allergies Allergies/Adverse Reactions: Allergies Allergy/AdvReac Type Severity Reaction Status Date / Time Penicillins Allergy Unknown Verified 02/02/18 09:52 - Home Medications Home Medications: Ambulatory Orders Cholecalciferol (Vitamin D3) [Vitamin D3] 1,000 unit PO DAILY 06/09/18 Glimepiride [Amaryl -] 4 mg PO DAILY@0700 06/09/18 Metformin HCl [Glucophage] 500 mg PO BID 06/09/18 Multivit-Min/Iron Fum/Folic AC [Rquiy-Wayqtiv-Rskjajwr Tablet] 1 each PO DAILY 06/09/18 Mupirocin Ointment [Bactroban Ointment (For Decolonization) -] 1 applic TP BID 06/09/18 Zinc 50 mg PO DAILY 06/09/18 Family Disease History - Family Disease History Family Disease History: CA: Mother (kidney) Review of Systems - Review of Systems Constitutional: reports: No Symptoms Eyes: reports: No Symptoms HENT: reports: No Symptoms Neck: reports: No Symptoms Cardiovascular: reports: No Symptoms Respiratory: reports: No Symptoms Gastrointestinal: reports: No Symptoms Genitourinary: reports: No Symptoms Musculoskeletal: reports: Other Integumentary: reports: Change in Color, Erythema, Wound Neurological: reports: No Symptoms Endocrine: reports: No Symptoms Hematology/Lymphatic: reports: No Symptoms Psychiatric: reports: No Symptoms Physical Exam Vital Signs: Vital Signs Temperature 97.9 F 06/10/18 10:00 Pulse Rate 72 06/10/18 10:00 Respiratory Rate 18 06/10/18 10:00 Blood Pressure 124/72 06/10/18 10:00 O2 Sat by Pulse Oximetry (%) 96 06/10/18 09:00 Constitutional: Yes: Well Nourished, No Distress, Calm HENT: Yes: Atraumatic, Normocephalic Cardiovascular: Yes: Regular Rate and Rhythm Respiratory: Yes: Regular, CTA Bilaterally Gastrointestinal: Yes: Normal Bowel Sounds, Soft Musculoskeletal: Yes: WNL Extremities: Yes: Erythema (rt foot) Integumentary: Yes: Erythema, Other Wound/Incision: Yes: Dressing Removed, Other (Yes: Other (erythema and edema of 2nd right toe, ulcer on 2nd toe - right and ulcer on sole of right foot)) Neurological: Yes: Alert, Oriented Labs: CBC, BMP 06/10/18 07:10 06/10/18 06:00 Imaging - Results Chest X-ray: Report Reviewed, Image Reviewed X-ray: Report Reviewed, Image Reviewed Assessment/Plan Problem List - Problems (1) Cellulitis of right foot Code(s): L03.115 - CELLULITIS OF RIGHT LOWER LIMB (2) Diabetic foot ulcer Code(s): E11.621 - TYPE 2 DIABETES MELLITUS WITH FOOT ULCER; L97.509 - NON- PRESSURE CHRONIC ULCER OTH PRT UNSP FOOT W UNSP SEVERITY (3) Hyperglycemia Code(s): R73.9 - HYPERGLYCEMIA, UNSPECIFIED (4) Uncontrolled type 2 diabetes mellitus Code(s): E11.65 - TYPE 2 DIABETES MELLITUS WITH HYPERGLYCEMIA (5) CKD stage 3 due to type 2 diabetes mellitus Code(s): E11.22 - TYPE 2 DIABETES MELLITUS W DIABETIC CHRONIC KIDNEY DISEASE; N18.3 - CHRONIC KIDNEY DISEASE, STAGE 3 (MODERATE) i am worried about osteo of the foot patient has got abx vanco allergic to pcn plan will start patient on ertapenam continue vanco wound care mri of the foot
--- NOTE | 2018-06-10 13:09 | PN ---
Progress Note, Physician History of Present Illness: stable doing well no new issues - Current Medication List Current Medications: Active Medications Acetaminophen (Tylenol -) 650 mg PO Q6H PRN PRN Reason: FEVER Enoxaparin Sodium (Lovenox -) 30 mg SQ DAILY [facility] Last Admin: 06/10/18 09:33 Dose: 30 mg Glimepiride (Amaryl -) 4 mg PO DAILY@0700 [facility] Last Admin: 06/10/18 09:32 Dose: 4 mg Ertapenem 1 gm/ Sodium (Chloride) 50 mls @ 100 mls/hr IVPB DAILY [facility] Last Admin: 06/10/18 09:32 Dose: 100 mls/hr Insulin Aspart (Novolog Vial Sliding Scale -) 1 vial SQ ACHS [facility]; Protocol Last Admin: 06/10/18 11:41 Dose: Not Given Metformin HCl (Glucophage -) 500 mg PO BIDAC [facility] Last Admin: 06/10/18 06:39 Dose: 500 mg Multivitamins/Minerals/Vitamin C (Tab-A-Vit -) 1 tab PO DAILY [facility] Last Admin: 06/10/18 09:32 Dose: 1 tab Mupirocin (Bactroban 2% Ointment -) 1 applic TP DAILY [facility] - Objective Vital Signs: Vital Signs Temperature 97.9 F 06/10/18 10:00 Pulse Rate 72 06/10/18 10:00 Respiratory Rate 18 06/10/18 10:00 Blood Pressure 124/72 06/10/18 10:00 O2 Sat by Pulse Oximetry (%) 96 06/10/18 09:00 Constitutional: Yes: No Distress, Calm Cardiovascular: Yes: Regular Rate and Rhythm Gastrointestinal: Yes: Normal Bowel Sounds, Soft Musculoskeletal: Yes: WNL Extremities: Yes: Other Integumentary: Yes: Erythema Wound/Incision: Yes: Dressing Dry and Intact Neurological: Yes: Alert, Oriented Psychiatric: Yes: Alert, Oriented Labs: CBC, BMP 06/10/18 07:10 06/10/18 06:00 Assessment/Plan Problem List - Problems (1) Cellulitis of right foot Code(s): L03.115 - CELLULITIS OF RIGHT LOWER LIMB (2) Diabetic foot ulcer Code(s): E11.621 - TYPE 2 DIABETES MELLITUS WITH FOOT ULCER; L97.509 - NON- PRESSURE CHRONIC ULCER OTH PRT UNSP FOOT W UNSP SEVERITY (3) Hyperglycemia Code(s): R73.9 - HYPERGLYCEMIA, UNSPECIFIED (4) Uncontrolled type 2 diabetes mellitus Code(s): E11.65 - TYPE 2 DIABETES MELLITUS WITH HYPERGLYCEMIA (5) CKD stage 3 due to type 2 diabetes mellitus Code(s): E11.22 - TYPE 2 DIABETES MELLITUS W DIABETIC CHRONIC KIDNEY DISEASE; N18.3 - CHRONIC KIDNEY DISEASE, STAGE 3 (MODERATE) i am worried about osteo of the foot patient has got abx vanco allergic to pcn plan continue abx await for mri wound care rest as per podiatry and the team
[2018-06-10] MEDS: VANCOMYCIN HCL 1,250 MG in SODIUM CHLORIDE 250 ML IVPB SCH (14:11)
--- NOTE | 2018-06-10 15:53 | CONSULT ---
Consult Consult Specialty:: Endocrinology Referred by:: Génesis Apodaca MD Reason for Consultation:: Hyperglycemia - History of Present Illness Chief Complaint: Foot infection History of Present Illness: This is a 58 yo F with h/o L breast ca s/p L mastectomy, T2DDM, recurrent LLE cellulitis, s/p admission for OM of L foot s/p debridement w/ MRSA on wound cx, was admitted for pain and redness of R foot, worsening x [address] Lowe of podiatry to ED for further management. Pt gives h/o DM for about 10 years. Fs at home in the morning low 100s and about 200s in the afternoon. No hypos. No polyuria, polydipsia. No visual symptoms. No paresthesia of feet. - History Source History Provided By: Patient, Medical Record - Past Medical History Cardio/Vascular: Yes: HTN ...: No Endocrine: Yes: Diabetes Mellitus - Past Surgical History Past Surgical History: Yes: Hysterectomy, Mastectomy (left breast) - Alcohol/Substance Use Hx Alcohol Use: No - Smoking History Smoking history: Never smoked Have you smoked in the past 12 months: No Aproximately how many cigarettes per day: 0 Home Medications - Allergies Allergies/Adverse Reactions: Allergies Allergy/AdvReac Type Severity Reaction Status Date / Time Penicillins Allergy Unknown Verified 02/02/18 09:52 - Home Medications Home Medications: Ambulatory Orders Cholecalciferol (Vitamin D3) [Vitamin D3] 1,000 unit PO DAILY 06/09/18 Glimepiride [Amaryl -] 4 mg PO DAILY@0700 06/09/18 Metformin HCl [Glucophage] 500 mg PO BID 06/09/18 Multivit-Min/Iron Fum/Folic AC [Raspi-Mswubpa-Zucnylkv Tablet] 1 each PO DAILY 06/09/18 Mupirocin Ointment [Bactroban Ointment (For Decolonization) -] 1 applic TP BID 06/09/18 Zinc 50 mg PO DAILY 06/09/18 Family Disease History - Family Disease History Family Disease History: CA: Mother (kidney) Other Family History: No family h/o DM Review of Systems - Review of Systems Constitutional: reports: No Symptoms Eyes: reports: No Symptoms HENT: reports: No Symptoms Neck: reports: No Symptoms Respiratory: reports: No Symptoms Gastrointestinal: reports: No Symptoms Genitourinary: reports: No Symptoms Integumentary: reports: No Symptoms Neurological: reports: No Symptoms Endocrine: reports: No Symptoms Physical Exam Vital Signs: Vital Signs Temperature 98.1 F 06/10/18 14:39 Pulse Rate 80 06/10/18 14:39 Respiratory Rate 18 06/10/18 14:39 Blood Pressure 131/71 06/10/18 14:39 O2 Sat by Pulse Oximetry (%) 96 06/10/18 09:00 Constitutional: Yes: No Distress, Calm Eyes: Yes: Conjunctiva Clear, EOM Intact HENT: Yes: Atraumatic, Normocephalic Neck: Yes: Supple, Trachea Midline Cardiovascular: Yes: Regular Rate and Rhythm Respiratory: Yes: Regular, CTA Bilaterally Gastrointestinal: Yes: Normal Bowel Sounds, Soft Musculoskeletal: Yes: WNL Extremities: Yes: Other (B/L foot dressing) Edema: No Neurological: Yes: Alert, Oriented Labs: CBC, BMP 06/10/18 07:10 06/10/18 06:00 Assessment/Plan AP; T2DM uncontrolled: a1c 11.6 Diabtic food ulcer Improving renal function BGM QACHS Nutrition consult Glimepiride 4mg QD Metformin Novolog SS coverage Will f/u
[2018-06-10] MEDS: MUPIROCIN 2% TOPICAL OINTMENT 22 GM TUBE TP SCH (16:24)
[2018-06-11] MEDS: GLIMEPIRIDE 4 MG TABLET (FP) PO SCH (06:22)
[2018-06-11] MEDS: metFORMIN HCL 500 MG TABLET (FP) PO SCH ×2 (06:22→16:57)
[2018-06-11] MEDS: INSULIN SLIDING SCALE (NOVOLOG) 1 VIAL SQ SCH ×4 (06:22→22:00)
[2018-06-11] MEDS ORDERED: GLIMEPIRIDE 4 MG TABLET (FP) PO SCH (09:04)
--- NOTE | 2018-06-11 09:04 | PN ---
Progress Note (short form) - Note Progress Note: Denies any complaints Vital Signs Period Temp Pulse Resp BP Sys/Adan Pulse Ox Last 24 Hr 97.8 F-98.2 F 75-84 18-20 123-145/65-79 96-100 PE: A x3 Neck: Supple, No JVD Lungs: CTA CVS: S1S2 Abd: Benign EXt: foot dressing Neuro: No focal deficit CMP Sodium 131 mmol/L (136-145) L 06/10/18 06:00 Potassium 4.0 mmol/L (3.5-5.1) 06/10/18 06:00 Chloride 99 mmol/L (98-107) 06/10/18 06:00 Carbon Dioxide 25 mmol/L (21-32) 06/10/18 06:00 Anion Gap 7 MMOL/L (8-16) L 06/10/18 06:00 BUN 29 mg/dL (7-18) H 06/10/18 06:00 Creatinine 1.1 mg/dL (0.55-1.3) 06/10/18 06:00 Creat Clearance w eGFR 50.67 (>60) 06/10/18 06:00 POC Glucometer 105 UNITS (80-120) 06/11/18 16:21 Random Glucose 308 mg/dL (74-106) H* 06/10/18 06:00 Hemoglobin A1c % 11.6 % (4.2-6.3) H 06/09/18 14:54 Calcium 9.0 mg/dL (8.5-10.1) 06/10/18 06:00 Total Bilirubin 0.6 mg/dL (0.2-1) 06/10/18 06:00 AST 13 U/L (15-37) L 06/10/18 06:00 ALT 19 U/L (13-61) 06/10/18 06:00 Alkaline Phosphatase 130 U/L (45-117) H 06/10/18 06:00 C-Reactive Protein 1.9 MG/DL (0.00-0.3) H 06/09/18 14:59 Total Protein 6.4 g/dl (6.4-8.2) 06/10/18 06:00 Albumin 3.0 g/dl (3.4-5.0) L 06/10/18 06:00 Current Medications Generic Name Dose Route Start Last Admin Trade Name Gabrielle PRN Reason Stop Dose Admin Acetaminophen 650 mg 06/09/18 18:41 06/10/18 20:37 Tylenol - PO 650 mg Q6H PRN Administration FEVER Enoxaparin Sodium 30 mg 06/10/18 10:00 06/11/18 09:35 Lovenox - SQ 30 mg DAILY [facility] Administration Glimepiride 1 mg/ Glimepiride 3 mg 06/12/18 07:00 2 mg PO DAILY@0700 [facility] Ertapenem 1 gm/ Sodium 50 mls @ 100 mls/hr 06/09/18 19:45 06/11/18 09:35 Chloride IVPB 100 mls/hr DAILY [facility] Administration Vancomycin HCl 1,250 mg/ 250 mls @ 166.667 mls/hr 06/10/18 14:00 06/11/18 14: 32 Sodium Chloride IVPB 166.667 mls/hr Q24H [facility] Administration Protocol Insulin Aspart 1 vial 06/10/18 22:00 06/10/18 21:01 Novolog Vial Sliding Scale - SQ Not Given HS [facility] Protocol Insulin Aspart 1 vial 06/10/18 16:30 06/11/18 16:58 Novolog Vial Sliding Scale - SQ Not Given TIDAC [facility] Protocol Metformin HCl 500 mg 06/09/18 16:45 06/11/18 16:57 Glucophage - PO 500 mg BIDAC [facility] Administration Multivitamins/Minerals/Vitamin C 1 tab 06/10/18 10:00 06/11/18 09:35 Tab-A-Vit - PO 1 tab DAILY [facility] Administration Mupirocin 1 applic 06/10/18 13:00 06/11/18 09:36 Bactroban 2% Ointment - TP 1 applic DAILY [facility] Administration AP; T2DM uncontrolled: A1c 11.6 Diabtic food ulcer Improving renal function Considering normalization of blood sugar in the hospital on meds she was supposed to be taking an home, hyperlgycemia probably secondary to non compliance with diet and or meds. BGM QACHS Nutrition consult Decrease Glimepiride 3 mg QD Metformin Novolog SS coverage Will f/u
[2018-06-11] MEDS ORDERED: PT OWN MED DRAWER 7, Y5N ONE ×2 (09:05→14:30)
[2018-06-11] MEDS: ENOXAPARIN NA (PORCINE) 30 MG/0.3 ML DISP.SYRIN SQ SCH (09:35)
[2018-06-11] MEDS: ERTAPENEM SODIUM 1 GM in SODIUM CHLORIDE 50 ML IVPB SCH (09:35)
[2018-06-11] MEDS: MULTIVITAMINS (DAILY MVI) TABLET (FP) PO SCH (09:35)
[2018-06-11] MEDS: MUPIROCIN 2% TOPICAL OINTMENT 22 GM TUBE TP SCH (09:36)
--- NOTE | 2018-06-11 11:21 | PN ---
Progress Note (short form) - Note Progress Note: BGM in the 90's now Has no pain Vital Signs - 24 hr 06/10/18 06/10/18 06/10/18 14:39 17:47 21:00 Temperature 98.1 F 97.9 F Pulse Rate 80 82 Respiratory 18 18 Rate Blood Pressure 131/71 147/73 O2 Sat by Pulse 96 Oximetry (%) 06/10/18 06/11/18 06/11/18 22:00 06:17 09:00 Temperature 97.8 F 97.9 F Pulse Rate 84 77 Respiratory 18 18 20 Rate Blood Pressure 139/76 145/79 O2 Sat by Pulse 100 Oximetry (%) 06/11/18 10:00 Temperature 98.2 F Pulse Rate 83 Respiratory 20 Rate Blood Pressure 136/66 O2 Sat by Pulse Oximetry (%) Current Medications Generic Name Dose Route Start Last Admin Trade Name Freq PRN Reason Stop Dose Admin Acetaminophen 650 mg 06/09/18 18:41 06/10/18 20:37 Tylenol - PO 650 mg Q6H PRN Administration FEVER Enoxaparin Sodium 30 mg 06/10/18 10:00 06/11/18 09:35 Lovenox - SQ 30 mg DAILY [facility] Administration Glimepiride 1 mg/ Glimepiride 3 mg 06/12/18 07:00 2 mg PO DAILY@0700 [facility] Ertapenem 1 gm/ Sodium 50 mls @ 100 mls/hr 06/09/18 19:45 06/11/18 09:35 Chloride IVPB 100 mls/hr DAILY [facility] Administration Vancomycin HCl 1,250 mg/ 250 mls @ 166.667 mls/hr 06/10/18 14:00 06/10/18 14: 11 Sodium Chloride IVPB 166.667 mls/hr Q24H [facility] Administration Protocol Insulin Aspart 1 vial 06/10/18 22:00 06/10/18 21:01 Novolog Vial Sliding Scale - SQ Not Given HS CARLOS Protocol Insulin Aspart 1 vial 06/10/18 16:30 06/11/18 11:22 Novolog Vial Sliding Scale - SQ Not Given TIDAC [facility] Protocol Metformin HCl 500 mg 06/09/18 16:45 06/11/18 06:22 Glucophage - PO 500 mg BIDAC [facility] Administration Multivitamins/Minerals/Vitamin C 1 tab 06/10/18 10:00 06/11/18 09:35 Tab-A-Vit - PO 1 tab DAILY [facility] Administration Mupirocin 1 applic 06/10/18 13:00 06/11/18 09:36 Bactroban 2% Ointment - TP 1 applic DAILY [facility] Administration Laboratory Results - last 24 hr 06/10/18 06/10/18 06/10/18 11:39 16:23 20:52 POC Glucometer 153 106 98 06/11/18 06/11/18 06:21 11:18 POC Glucometer 98 91 S1 S2RRR Lungs clear Abd- soft, NT Edema right foot wounds PLAN Pt does not want to take Insulin Endocrinology eval noted continue with antibiotics MRI right foot to r/o osteomyelitis done - report pending pt does not wish to take IV antibiotics senior care, would like a PO option instead- will need to speak with ID, first we need to know MRI findings also Wound cultures done in wound center-- no growth Problem List - Problems (1) Cellulitis of right foot Code(s): L03.115 - CELLULITIS OF RIGHT LOWER LIMB (2) Diabetic foot ulcer Code(s): E11.621 - TYPE 2 DIABETES MELLITUS WITH FOOT ULCER; L97.509 - NON- PRESSURE CHRONIC ULCER OTH PRT UNSP FOOT W UNSP SEVERITY (3) Hyperglycemia Code(s): R73.9 - HYPERGLYCEMIA, UNSPECIFIED (4) Uncontrolled type 2 diabetes mellitus Code(s): E11.65 - TYPE 2 DIABETES MELLITUS WITH HYPERGLYCEMIA (5) CKD stage 3 due to type 2 diabetes mellitus Code(s): E11.22 - TYPE 2 DIABETES MELLITUS W DIABETIC CHRONIC KIDNEY DISEASE; N18.3 - CHRONIC KIDNEY DISEASE, STAGE 3 (MODERATE)
[2018-06-11] MEDS: VANCOMYCIN HCL 1,250 MG in SODIUM CHLORIDE 250 ML IVPB SCH (14:32)
--- NOTE | 2018-06-11 15:03 | PN ---
Progress Note, Physician History of Present Illness: patient stable doing well no complaints legs look better - Current Medication List Current Medications: Active Medications Acetaminophen (Tylenol -) 650 mg PO Q6H PRN PRN Reason: FEVER Last Admin: 06/10/18 20:37 Dose: 650 mg Enoxaparin Sodium (Lovenox -) 30 mg SQ DAILY [facility] Last Admin: 06/11/18 09:35 Dose: 30 mg Glimepiride 1 mg/ Glimepiride (2 mg) 3 mg PO DAILY@0700 [facility] Ertapenem 1 gm/ Sodium (Chloride) 50 mls @ 100 mls/hr IVPB DAILY [facility] Last Admin: 06/11/18 09:35 Dose: 100 mls/hr Vancomycin HCl 1,250 mg/ (Sodium Chloride) 250 mls @ 166.667 mls/hr IVPB Q24H [facility]; Protocol Last Admin: 06/11/18 14:32 Dose: 166.667 mls/hr Insulin Aspart (Novolog Vial Sliding Scale -) 1 vial SQ HS [facility]; Protocol Last Admin: 06/10/18 21:01 Dose: Not Given Insulin Aspart (Novolog Vial Sliding Scale -) 1 vial SQ TIDAC [facility]; Protocol Last Admin: 06/11/18 11:22 Dose: Not Given Metformin HCl (Glucophage -) 500 mg PO BIDAC [facility] Last Admin: 06/11/18 06:22 Dose: 500 mg Multivitamins/Minerals/Vitamin C (Tab-A-Vit -) 1 tab PO DAILY [facility] Last Admin: 06/11/18 09:35 Dose: 1 tab Mupirocin (Bactroban 2% Ointment -) 1 applic TP DAILY [facility] Last Admin: 06/11/18 09:36 Dose: 1 applic - Objective Vital Signs: Vital Signs Temperature 98.1 F 06/11/18 13:37 Pulse Rate 75 06/11/18 13:37 Respiratory Rate 20 06/11/18 13:37 Blood Pressure 123/65 06/11/18 13:37 O2 Sat by Pulse Oximetry (%) 100 06/11/18 09:00 Constitutional: Yes: No Distress, Calm Cardiovascular: Yes: Regular Rate and Rhythm Respiratory: Yes: Regular, CTA Bilaterally Gastrointestinal: Yes: Normal Bowel Sounds, Soft Musculoskeletal: Yes: WNL Extremities: Yes: Other Wound/Incision: Yes: Dressing Dry and Intact Neurological: Yes: Alert, Oriented Psychiatric: Yes: Alert, Oriented Labs: CBC, BMP 06/10/18 07:10 06/10/18 06:00 Assessment/Plan Problem List - Problems (1) Cellulitis of right foot Code(s): L03.115 - CELLULITIS OF RIGHT LOWER LIMB (2) Diabetic foot ulcer Code(s): E11.621 - TYPE 2 DIABETES MELLITUS WITH FOOT ULCER; L97.509 - NON- PRESSURE CHRONIC ULCER OTH PRT UNSP FOOT W UNSP SEVERITY (3) Hyperglycemia Code(s): R73.9 - HYPERGLYCEMIA, UNSPECIFIED (4) Uncontrolled type 2 diabetes mellitus Code(s): E11.65 - TYPE 2 DIABETES MELLITUS WITH HYPERGLYCEMIA (5) CKD stage 3 due to type 2 diabetes mellitus Code(s): E11.22 - TYPE 2 DIABETES MELLITUS W DIABETIC CHRONIC KIDNEY DISEASE; N18.3 - CHRONIC KIDNEY DISEASE, STAGE 3 (MODERATE) osteo of the left foot spoke with the patient and told her she will need iv abx for at least 5 more weeks plan continue abx all results noted will order vanco trough will need vanco for another 5 weeks
[2018-06-12] MEDS ORDERED: PT OWN MED DRAWER 7, Y5N ONE (06:29)
[2018-06-12] MEDS: metFORMIN HCL 500 MG TABLET (FP) PO SCH ×2 (06:50→17:02)
[2018-06-12] MEDS: GLIMEPIRIDE PO SCH (06:50)
[2018-06-12] MEDS: INSULIN SLIDING SCALE (NOVOLOG) 1 VIAL SQ SCH ×4 (06:51→22:28)
[2018-06-12 08:31] LABS: BASO % 0.9 % (0-2.0); EOS % 4.8 % (0-4.5); HEMATOCRIT 37.2 % (32.4-45.2); HEMOGLOBIN 12.8 GM/dL (10.7-15.3); MCH 32.2 pg (25.7-33.7); MCHC 34.3 g/dl (32.0-36.0); MEAN CELL VOLUME 93.9 fl (80-96); MEAN PLT VOLUME 9.3 fl (7.5-11.1); MONO % 8.5 % (3.8-10.2); NEUT % 63.8 % (42.8-82.8); PLATELET COUNT 269 K/MM3 (134-434); RBC 3.96 M/mm3 (3.60-5.2); RDW 12.2 % (11.6-15.6)
[2018-06-12 08:59] LABS: ALBUMIN 3.4 g/dl (3.4-5.0); ALK PHOS 131 U/L (45-117); ANION GAP 8 MMOL/L (8-16); BILIRUBIN,TOTAL 0.3 mg/dL (0.2-1); BLOOD UREA NITROGEN 17 mg/dL (7-18); CALCIUM 8.9 mg/dL (8.5-10.1); CHLORIDE 103 mmol/L (98-107); CO2 27 mmol/L (21-32); CREATININE 0.9 mg/dL (0.55-1.3); GLUCOSE,RANDOM 112 mg/dL (74-106); POTASSIUM 4.3 mmol/L (3.5-5.1); SGOT/AST 17 U/L (15-37); SGPT/ALT 22 U/L (13-61); SODIUM 137 mmol/L (136-145)
[2018-06-12] MEDS: ENOXAPARIN NA (PORCINE) 30 MG/0.3 ML DISP.SYRIN SQ SCH (09:31)
[2018-06-12] MEDS: MULTIVITAMINS (DAILY MVI) TABLET (FP) PO SCH (09:31)
[2018-06-12] MEDS: ERTAPENEM SODIUM 1 GM in SODIUM CHLORIDE 50 ML IVPB SCH (09:31)
[2018-06-12] MEDS: MUPIROCIN 2% TOPICAL OINTMENT 22 GM TUBE TP SCH (09:31)
--- NOTE | 2018-06-12 10:41 | PN ---
Progress Note (short form) - Note Progress Note: Pt seen/ examined chart reviewed awake/ comfortable denies pain afebrile Vital Signs Temp 97.9 F 06/12/18 06:25 Pulse 83 06/12/18 06:25 Resp 18 06/12/18 06:25 BP 136/76 06/12/18 06:25 Pulse Ox 100 06/11/18 21:00 Intake & Output 06/11/18 06/11/18 06/12/18 11:59 23:59 11:59 Intake Total 200 1200 0 Balance 200 1200 0 Intake: IVPB 300 Oral 200 900 0 Other: Voiding Method Toilet Toilet Toilet Bowel Movement No Active Medications Acetaminophen (Tylenol -) 650 mg PO Q6H PRN PRN Reason: FEVER Last Admin: 06/10/18 20:37 Dose: 650 mg Enoxaparin Sodium (Lovenox -) 30 mg SQ DAILY [facility] Last Admin: 06/12/18 09:31 Dose: 30 mg Glimepiride 1 mg/ Glimepiride (2 mg) 3 mg PO DAILY@0700 [facility] Last Admin: 06/12/18 06:50 Dose: 3 mg Ertapenem 1 gm/ Sodium (Chloride) 50 mls @ 100 mls/hr IVPB DAILY [facility] Last Admin: 06/12/18 09:31 Dose: 100 mls/hr Vancomycin HCl 1,250 mg/ (Sodium Chloride) 250 mls @ 166.667 mls/hr IVPB Q24H [facility]; Protocol Last Admin: 06/11/18 14:32 Dose: 166.667 mls/hr Insulin Aspart (Novolog Vial Sliding Scale -) 1 vial SQ HS [facility]; Protocol Last Admin: 06/11/18 22:00 Dose: Not Given Insulin Aspart (Novolog Vial Sliding Scale -) 1 vial SQ TIDAC [facility]; Protocol Last Admin: 06/12/18 06:51 Dose: Not Given Metformin HCl (Glucophage -) 500 mg PO BIDAC [facility] Last Admin: 06/12/18 06:50 Dose: 500 mg Multivitamins/Minerals/Vitamin C (Tab-A-Vit -) 1 tab PO DAILY [facility] Last Admin: 06/12/18 09:31 Dose: 1 tab Mupirocin (Bactroban 2% Ointment -) 1 applic TP DAILY [facility] Last Admin: 06/12/18 09:31 Dose: 1 applic CBC, BMP 06/12/18 08:10 06/12/18 08:10 Mri- Noted-- Likely osteo -- as per me. Physical Exam S1 S2RRR Lungs clear Abd- soft, NT Edema right foot wounds A/p stable continue present care abx per i/d i/d to follow monitor bgm discussed with shelter case manager/ nursing staff also will follow
--- NOTE | 2018-06-12 12:29 | PN ---
Progress Note (short form) - Note Progress Note: 58 y/o female seen with b/l foot ucleration. Dr. Lowe following patient. With + MRSA and + MRI for osteo. Will require PICC. Patient understands. O: Wound with granular base, mininal erythema, minimal edema mild serous drainage, no purulnece, no malodor noted A: osteomyelitis MRSA P: Evaluatd and reviewed for PICC Will req IV abx per ID> Will f/u in wound care center.
--- NOTE | 2018-06-12 12:46 | PN ---
Progress Note, Physician History of Present Illness: patient stable doing well - Current Medication List Current Medications: Active Medications Acetaminophen (Tylenol -) 650 mg PO Q6H PRN PRN Reason: FEVER Last Admin: 06/10/18 20:37 Dose: 650 mg Enoxaparin Sodium (Lovenox -) 30 mg SQ DAILY [facility] Last Admin: 06/12/18 09:31 Dose: 30 mg Glimepiride 1 mg/ Glimepiride (2 mg) 3 mg PO DAILY@0700 [facility] Last Admin: 06/12/18 06:50 Dose: 3 mg Vancomycin HCl 1,250 mg/ (Sodium Chloride) 250 mls @ 166.667 mls/hr IVPB Q24H [facility]; Protocol Last Admin: 06/11/18 14:32 Dose: 166.667 mls/hr Insulin Aspart (Novolog Vial Sliding Scale -) 1 vial SQ HS [facility]; Protocol Last Admin: 06/11/18 22:00 Dose: Not Given Insulin Aspart (Novolog Vial Sliding Scale -) 1 vial SQ TIDAC [facility]; Protocol Last Admin: 06/12/18 12:20 Dose: Not Given Metformin HCl (Glucophage -) 500 mg PO BIDAC [facility] Last Admin: 06/12/18 06:50 Dose: 500 mg Multivitamins/Minerals/Vitamin C (Tab-A-Vit -) 1 tab PO DAILY [facility] Last Admin: 06/12/18 09:31 Dose: 1 tab Mupirocin (Bactroban 2% Ointment -) 1 applic TP DAILY [facility] Last Admin: 06/12/18 09:31 Dose: 1 applic - Objective Vital Signs: Vital Signs Temperature 97.9 F 06/12/18 06:25 Pulse Rate 83 06/12/18 06:25 Respiratory Rate 18 06/12/18 06:25 Blood Pressure 136/76 06/12/18 06:25 O2 Sat by Pulse Oximetry (%) 100 06/12/18 09:00 Constitutional: Yes: No Distress, Calm Cardiovascular: Yes: Regular Rate and Rhythm Respiratory: Yes: Regular, CTA Bilaterally Gastrointestinal: Yes: Normal Bowel Sounds, Soft Musculoskeletal: Yes: Other Extremities: Yes: Other Wound/Incision: Yes: Dressing Dry and Intact Neurological: Yes: Alert, Oriented Psychiatric: Yes: Alert, Oriented Labs: CBC, BMP 06/12/18 08:10 06/12/18 08:10 Assessment/Plan Problem List - Problems (1) Cellulitis of right foot Code(s): L03.115 - CELLULITIS OF RIGHT LOWER LIMB (2) Diabetic foot ulcer Code(s): E11.621 - TYPE 2 DIABETES MELLITUS WITH FOOT ULCER; L97.509 - NON- PRESSURE CHRONIC ULCER OTH PRT UNSP FOOT W UNSP SEVERITY (3) Hyperglycemia Code(s): R73.9 - HYPERGLYCEMIA, UNSPECIFIED (4) Uncontrolled type 2 diabetes mellitus Code(s): E11.65 - TYPE 2 DIABETES MELLITUS WITH HYPERGLYCEMIA (5) CKD stage 3 due to type 2 diabetes mellitus Code(s): E11.22 - TYPE 2 DIABETES MELLITUS W DIABETIC CHRONIC KIDNEY DISEASE; N18.3 - CHRONIC KIDNEY DISEASE, STAGE 3 (MODERATE) i am worried about osteo of the foot patient has got abx vanco allergic to pcn plan continue abx all results noted will order vanco trough will need vanco for another 5 weeks
[2018-06-12] MEDS: VANCOMYCIN HCL 1,250 MG in SODIUM CHLORIDE 250 ML IVPB SCH (17:00)
[2018-06-12] MEDS: VANCOMYCIN HCL 1,500 MG/500 ML BAG IVPB SCH (20:00)
[2018-06-13] MEDS: GLIMEPIRIDE PO SCH (06:21)
[2018-06-13] MEDS: metFORMIN HCL 500 MG TABLET (FP) PO SCH ×2 (06:21→16:00)
[2018-06-13] MEDS: INSULIN SLIDING SCALE (NOVOLOG) 1 VIAL SQ SCH ×4 (06:21→22:06)
[2018-06-13] MEDS ORDERED: PT OWN MED DRAWER 7, Y5N ONE ×4 (09:42→18:23)
[2018-06-13] MEDS: MULTIVITAMINS (DAILY MVI) TABLET (FP) PO SCH (10:09)
[2018-06-13] MEDS: ENOXAPARIN NA (PORCINE) 30 MG/0.3 ML DISP.SYRIN SQ SCH (10:10)
[2018-06-13] MEDS: MUPIROCIN 2% TOPICAL OINTMENT 22 GM TUBE TP SCH (10:12)
[2018-06-13] MEDS ORDERED: INSULIN (NOVOLOG) ASPART 100 UNITS/ML 10ML VIAL ONE ×2 (11:22→18:24)
--- NOTE | 2018-06-13 12:27 | PN ---
Progress Note (short form) - Note Progress Note: pt seen/ examined comfortable no new issues i/d f/u noted abx - retirement recommended. Vital Signs Temp 97.6 F 06/13/18 08:51 Pulse 82 06/13/18 08:51 Resp 17 06/13/18 08:51 BP 158/76 06/13/18 08:51 Pulse Ox 98 06/12/18 21:00 Intake & Output 06/12/18 06/13/18 06/13/18 23:59 11:59 23:59 Intake Total 750 250 Balance 750 250 Intake: IVPB 500 Oral 250 250 Other: Voiding Method Toilet Toilet # Unmeasured Voids Void 2 2 Active Medications Acetaminophen (Tylenol -) 650 mg PO Q6H PRN PRN Reason: FEVER Last Admin: 06/10/18 20:37 Dose: 650 mg Enoxaparin Sodium (Lovenox -) 30 mg SQ DAILY [facility] Last Admin: 06/13/18 10:10 Dose: 30 mg Glimepiride 1 mg/ Glimepiride (2 mg) 3 mg PO DAILY@0700 [facility] Last Admin: 06/13/18 06:21 Dose: Not Given Vancomycin HCl (Vancomycin (Pre-Docked)) 1,500 mg in 500 mls @ 250 mls/hr IVPB DAILY@1600 [facility] Last Admin: 06/12/18 20:00 Dose: 250 mls/hr Insulin Aspart (Novolog Vial Sliding Scale -) 1 vial SQ HS [facility]; Protocol Last Admin: 06/12/18 22:28 Dose: Not Given Insulin Aspart (Novolog Vial Sliding Scale -) 1 vial SQ TIDAC [facility]; Protocol Last Admin: 06/13/18 11:26 Dose: 2 units Metformin HCl (Glucophage -) 500 mg PO BIDAC [facility] Last Admin: 06/13/18 06:21 Dose: Not Given Multivitamins/Minerals/Vitamin C (Tab-A-Vit -) 1 tab PO DAILY [facility] Last Admin: 06/13/18 10:09 Dose: 1 tab Mupirocin (Bactroban 2% Ointment -) 1 applic TP DAILY [facility] Last Admin: 06/13/18 10:12 Dose: 1 applic CBC, BMP 06/12/18 08:10 06/12/18 08:10 Physical Exam S1 S2 RRR Lungs clear Abd- soft, NT Edema right foot wounds A/p stable continue present care abx per i/d monitor bgm picc line ordered will follow. Problem List - Problems (1) Diabetes Code(s): E11.9 - TYPE 2 DIABETES MELLITUS WITHOUT COMPLICATIONS (2) Acute osteomyelitis of metatarsal bone of left foot Code(s): M86.172 - OTHER ACUTE OSTEOMYELITIS, LEFT ANKLE AND FOOT (3) Diabetic foot ulcer Code(s): E11.621 - TYPE 2 DIABETES MELLITUS WITH FOOT ULCER; L97.509 - NON- PRESSURE CHRONIC ULCER OTH PRT UNSP FOOT W UNSP SEVERITY
--- NOTE | 2018-06-13 15:32 | PN ---
Progress Note, Physician History of Present Illness: stable doing well leg improving - Current Medication List Current Medications: Active Medications Acetaminophen (Tylenol -) 650 mg PO Q6H PRN PRN Reason: FEVER Last Admin: 06/10/18 20:37 Dose: 650 mg Enoxaparin Sodium (Lovenox -) 30 mg SQ DAILY [facility] Last Admin: 06/13/18 10:10 Dose: 30 mg Glimepiride 1 mg/ Glimepiride (2 mg) 3 mg PO DAILY@0700 [facility] Last Admin: 06/13/18 06:21 Dose: Not Given Vancomycin HCl (Vancomycin (Pre-Docked)) 1,500 mg in 500 mls @ 250 mls/hr IVPB DAILY@1600 [facility] Last Admin: 06/12/18 20:00 Dose: 250 mls/hr Insulin Aspart (Novolog Vial Sliding Scale -) 1 vial SQ HS [facility]; Protocol Last Admin: 06/12/18 22:28 Dose: Not Given Insulin Aspart (Novolog Vial Sliding Scale -) 1 vial SQ TIDAC [facility]; Protocol Last Admin: 06/13/18 11:26 Dose: 2 units Metformin HCl (Glucophage -) 500 mg PO BIDAC [facility] Last Admin: 06/13/18 06:21 Dose: Not Given Multivitamins/Minerals/Vitamin C (Tab-A-Vit -) 1 tab PO DAILY [facility] Last Admin: 06/13/18 10:09 Dose: 1 tab Mupirocin (Bactroban 2% Ointment -) 1 applic TP DAILY [facility] Last Admin: 06/13/18 10:12 Dose: 1 applic - Objective Vital Signs: Vital Signs Temperature 97.6 F 06/13/18 08:51 Pulse Rate 82 06/13/18 08:51 Respiratory Rate 17 06/13/18 08:51 Blood Pressure 158/76 06/13/18 08:51 O2 Sat by Pulse Oximetry (%) 98 06/12/18 21:00 Constitutional: Yes: No Distress, Calm Eyes: Yes: Conjunctiva Clear Cardiovascular: Yes: Regular Rate and Rhythm Respiratory: Yes: Regular, CTA Bilaterally Gastrointestinal: Yes: Normal Bowel Sounds, Soft Musculoskeletal: Yes: WNL Extremities: Yes: Other Integumentary: Yes: Other Wound/Incision: Yes: Dressing Dry and Intact Neurological: Yes: Alert, Oriented Psychiatric: Yes: Alert, Oriented Labs: CBC, BMP 06/12/18 08:10 06/12/18 08:10 Assessment/Plan Problem List - Problems (1) Cellulitis of right foot Code(s): L03.115 - CELLULITIS OF RIGHT LOWER LIMB (2) Diabetic foot ulcer Code(s): E11.621 - TYPE 2 DIABETES MELLITUS WITH FOOT ULCER; L97.509 - NON- PRESSURE CHRONIC ULCER OTH PRT UNSP FOOT W UNSP SEVERITY (3) Hyperglycemia Code(s): R73.9 - HYPERGLYCEMIA, UNSPECIFIED (4) Uncontrolled type 2 diabetes mellitus Code(s): E11.65 - TYPE 2 DIABETES MELLITUS WITH HYPERGLYCEMIA (5) CKD stage 3 due to type 2 diabetes mellitus Code(s): E11.22 - TYPE 2 DIABETES MELLITUS W DIABETIC CHRONIC KIDNEY DISEASE; N18.3 - CHRONIC KIDNEY DISEASE, STAGE 3 (MODERATE) osteo of the left foot spoke with the patient and told her she will need iv abx for at least 5 more weeks plan continue abx all results noted will order vanco trough will need vanco for another 5 weeks
--- NOTE | 2018-06-13 15:52 | PN ---
Progress Note (short form) - Note Progress Note: Denies any complaints FS 88 in the morning Vital Signs Period Temp Pulse Resp BP Sys/Adan Pulse Ox Last 24 Hr 97.6 F-98.8 F 79-83 17-20 130-158/68-81 98 PE: AO x3 Neck: Supple, No JVD Lungs: CTA CVS: S1S2 Abd: Benign EXt: foot dressing Neuro: No focal deficit CMP Sodium 137 mmol/L (136-145) 06/12/18 08:10 Potassium 4.3 mmol/L (3.5-5.1) 06/12/18 08:10 Chloride 103 mmol/L (98-107) 06/12/18 08:10 Carbon Dioxide 27 mmol/L (21-32) 06/12/18 08:10 Anion Gap 8 MMOL/L (8-16) 06/12/18 08:10 BUN 17 mg/dL (7-18) 06/12/18 08:10 Creatinine 0.9 mg/dL (0.55-1.3) 06/12/18 08:10 Creat Clearance w eGFR 63.87 (>60) 06/12/18 08:10 POC Glucometer 165 UNITS (80-120) 06/13/18 11:16 Random Glucose 112 mg/dL (74-106) H 06/12/18 08:10 Hemoglobin A1c % 11.6 % (4.2-6.3) H 06/09/18 14:54 Calcium 8.9 mg/dL (8.5-10.1) 06/12/18 08:10 Total Bilirubin 0.3 mg/dL (0.2-1) 06/12/18 08:10 AST 17 U/L (15-37) 06/12/18 08:10 ALT 22 U/L (13-61) 06/12/18 08:10 Alkaline Phosphatase 131 U/L (45-117) H 06/12/18 08:10 C-Reactive Protein 1.9 MG/DL (0.00-0.3) H 06/09/18 14:59 Total Protein 7.0 g/dl (6.4-8.2) 06/12/18 08:10 Albumin 3.4 g/dl (3.4-5.0) 06/12/18 08:10 Current Medications Generic Name Dose Route Start Last Admin Trade Name Freq PRN Reason Stop Dose Admin Acetaminophen 650 mg 06/09/18 18:41 06/10/18 20:37 Tylenol - PO 650 mg Q6H PRN Administration FEVER Enoxaparin Sodium 30 mg 06/10/18 10:00 06/13/18 10:10 Lovenox - SQ 30 mg DAILY CARLOS Administration Glimepiride 1 mg/ Glimepiride 3 mg 06/12/18 07:00 06/13/18 06:21 2 mg PO Not Given DAILY@0700 CARLOS Vancomycin HCl 1,500 mg in 500 mls @ 250 mls/hr 06/12/18 16:00 06/12/18 20:00 Vancomycin (Pre-Docked) IVPB 250 mls/hr DAILY@1600 CARLOS Administration Insulin Aspart 1 vial 06/10/18 22:00 06/12/18 22:28 Novolog Vial Sliding Scale - SQ Not Given HS CARLOS Protocol Insulin Aspart 1 vial 06/10/18 16:30 06/13/18 11:26 Novolog Vial Sliding Scale - SQ 2 units TIDAC CARLOS Administration Protocol Metformin HCl 500 mg 06/09/18 16:45 06/13/18 06:21 Glucophage - PO Not Given BIDAC CARLOS Multivitamins/Minerals/Vitamin C 1 tab 06/10/18 10:00 06/13/18 10:09 Tab-A-Vit - PO 1 tab DAILY CARLOS Administration Mupirocin 1 applic 06/10/18 13:00 06/13/18 10:12 Bactroban 2% Ointment - TP 1 applic DAILY CARLOS Administration AP; T2DM uncontrolled: A1c 11.6 Diabtic food ulcer Improving renal function Considering normalization of blood sugar in the hospital on meds she was supposed to be taking an home, hyperlgycemia probably secondary to non compliance with diet and or meds. BGM QACHS Decrease Glimepiride 2 mg QD Metformin 500mg BID Novolog SS coverage Will f/u
[2018-06-13] MEDS: VANCOMYCIN HCL 1,500 MG/500 ML BAG IVPB SCH (16:50)
[2018-06-13] MEDS: VANCOMYCIN HCL 1,500 MG in SODIUM CHLORIDE 500 ML IVPB SCH (17:02)
[2018-06-14] MEDS: metFORMIN HCL 500 MG TABLET (FP) PO SCH ×2 (06:12→16:52)
[2018-06-14] MEDS: INSULIN SLIDING SCALE (NOVOLOG) 1 VIAL SQ SCH ×4 (06:15→22:11)
[2018-06-14] MEDS ORDERED: GLIMEPIRIDE 1 MG TABLET (FP) PO SCH (07:00)
[2018-06-14] MEDS ORDERED: PT OWN MED DRAWER 7, Y5N ONE (09:09)
[2018-06-14] MEDS: ENOXAPARIN NA (PORCINE) 30 MG/0.3 ML DISP.SYRIN SQ SCH (09:37)
[2018-06-14] MEDS: MUPIROCIN 2% TOPICAL OINTMENT 22 GM TUBE TP SCH (09:37)
[2018-06-14] MEDS: MULTIVITAMINS (DAILY MVI) TABLET (FP) PO SCH (09:37)
[2018-06-14] MEDS ORDERED: INSULIN (NOVOLOG) ASPART 100 UNITS/ML 10ML VIAL ONE (11:11)
--- NOTE | 2018-06-14 13:22 | PN ---
Progress Note, Physician History of Present Illness: patient stable continue current mgmt - Current Medication List Current Medications: Active Medications Acetaminophen (Tylenol -) 650 mg PO Q6H PRN PRN Reason: FEVER Last Admin: 06/10/18 20:37 Dose: 650 mg Enoxaparin Sodium (Lovenox -) 30 mg SQ DAILY [facility] Last Admin: 06/14/18 09:37 Dose: 30 mg Glimepiride (Amaryl -) 2 mg PO DAILY@0700 CARLOS Vancomycin HCl 1,500 mg/ (Sodium Chloride) 500 mls @ 250 mls/hr IVPB DAILY@ 1600 CARLOS Last Admin: 06/13/18 17:02 Dose: 250 mls/hr Insulin Aspart (Novolog Vial Sliding Scale -) 1 vial SQ HS [facility]; Protocol Last Admin: 06/13/18 22:06 Dose: Not Given Insulin Aspart (Novolog Vial Sliding Scale -) 1 vial SQ TIDAC [facility]; Protocol Last Admin: 06/14/18 11:56 Dose: Not Given Metformin HCl (Glucophage -) 500 mg PO BIDAC [facility] Last Admin: 06/14/18 06:12 Dose: 500 mg Multivitamins/Minerals/Vitamin C (Tab-A-Vit -) 1 tab PO DAILY [facility] Last Admin: 06/14/18 09:37 Dose: 1 tab Mupirocin (Bactroban 2% Ointment -) 1 applic TP DAILY [facility] Last Admin: 06/14/18 09:37 Dose: 1 applic - Objective Vital Signs: Vital Signs Temperature 98.2 F 06/14/18 09:35 Pulse Rate 79 06/14/18 09:35 Respiratory Rate 18 06/14/18 09:35 Blood Pressure 148/70 06/14/18 09:35 O2 Sat by Pulse Oximetry (%) 97 06/13/18 21:00 Constitutional: Yes: No Distress, Calm Respiratory: Yes: Regular, CTA Bilaterally Gastrointestinal: Yes: Normal Bowel Sounds, Soft Musculoskeletal: Yes: WNL Extremities: Yes: Other Wound/Incision: Yes: Dressing Dry and Intact Neurological: Yes: Alert, Oriented Psychiatric: Yes: Alert, Oriented Labs: CBC, BMP 06/12/18 08:10 06/12/18 08:10 Assessment/Plan Problem List - Problems (1) Cellulitis of right foot Code(s): L03.115 - CELLULITIS OF RIGHT LOWER LIMB (2) Diabetic foot ulcer Code(s): E11.621 - TYPE 2 DIABETES MELLITUS WITH FOOT ULCER; L97.509 - NON- PRESSURE CHRONIC ULCER OTH PRT UNSP FOOT W UNSP SEVERITY (3) Hyperglycemia Code(s): R73.9 - HYPERGLYCEMIA, UNSPECIFIED (4) Uncontrolled type 2 diabetes mellitus Code(s): E11.65 - TYPE 2 DIABETES MELLITUS WITH HYPERGLYCEMIA (5) CKD stage 3 due to type 2 diabetes mellitus Code(s): E11.22 - TYPE 2 DIABETES MELLITUS W DIABETIC CHRONIC KIDNEY DISEASE; N18.3 - CHRONIC KIDNEY DISEASE, STAGE 3 (MODERATE) osteo of the left foot spoke with the patient and told her she will need iv abx for at least 5 more weeks plan continue abx all results noted continue vanco dose increased recheck vanco trough befoe the 4th dose rest as per the team
--- NOTE | 2018-06-14 13:40 | PN ---
Progress Note (short form) - Note Progress Note: comfortable no new issues feels well Vital Signs Temp 98.2 F 06/14/18 09:35 Pulse 79 06/14/18 09:35 Resp 18 06/14/18 09:35 BP 148/70 06/14/18 09:35 Pulse Ox 97 06/13/18 21:00 Intake & Output 06/13/18 06/14/18 06/14/18 23:59 11:59 23:59 Intake Total 1380 300 Balance 1380 300 Intake: IVPB 500 Oral 880 300 Other: Voiding Method Toilet Toilet # Unmeasured Voids Void 3 Bowel Movement No Active Medications Acetaminophen (Tylenol -) 650 mg PO Q6H PRN PRN Reason: FEVER Last Admin: 06/10/18 20:37 Dose: 650 mg Enoxaparin Sodium (Lovenox -) 30 mg SQ DAILY [facility] Last Admin: 06/14/18 09:37 Dose: 30 mg Glimepiride (Amaryl -) 2 mg PO DAILY@0700 CARLOS Vancomycin HCl 1,500 mg/ (Sodium Chloride) 500 mls @ 250 mls/hr IVPB DAILY@ 1600 CARLOS Last Admin: 06/13/18 17:02 Dose: 250 mls/hr Insulin Aspart (Novolog Vial Sliding Scale -) 1 vial SQ HS [facility]; Protocol Last Admin: 06/13/18 22:06 Dose: Not Given Insulin Aspart (Novolog Vial Sliding Scale -) 1 vial SQ TIDAC [facility]; Protocol Last Admin: 06/14/18 11:56 Dose: Not Given Metformin HCl (Glucophage -) 500 mg PO BIDAC [facility] Last Admin: 06/14/18 06:12 Dose: 500 mg Multivitamins/Minerals/Vitamin C (Tab-A-Vit -) 1 tab PO DAILY [facility] Last Admin: 06/14/18 09:37 Dose: 1 tab Mupirocin (Bactroban 2% Ointment -) 1 applic TP DAILY [facility] Last Admin: 06/14/18 09:37 Dose: 1 applic CBC, BMP 06/12/18 08:10 06/12/18 08:10 Physical Exam S1 S2 RRR Lungs clear Abd- soft, NT Edema right foot wounds A/p stable continue present care abx per i/d monitor bgm picc line ordered will follow. Anticipate d/c in am Problem List - Problems (1) Diabetes Code(s): E11.9 - TYPE 2 DIABETES MELLITUS WITHOUT COMPLICATIONS (2) Acute osteomyelitis of metatarsal bone of left foot Code(s): M86.172 - OTHER ACUTE OSTEOMYELITIS, LEFT ANKLE AND FOOT (3) Diabetic foot ulcer Code(s): E11.621 - TYPE 2 DIABETES MELLITUS WITH FOOT ULCER; L97.509 - NON- PRESSURE CHRONIC ULCER OTH PRT UNSP FOOT W UNSP SEVERITY
[2018-06-14 13:44] VITALS: BMI 22.5
[2018-06-14] MEDS ORDERED: POLYETHYLENE GLYCOL 3350 119 GM BTL PO PRN (14:47)
[2018-06-14] MEDS ORDERED: VANCOMYCIN HCL 1,500 MG in SODIUM CHLORIDE 500 ML IVPB SCH (16:00)
[2018-06-14] MEDS: VANCOMYCIN HCL 1,500 MG in SODIUM CHLORIDE 500 ML IVPB SCH (19:25)
[2018-06-15] MEDS: INSULIN SLIDING SCALE (NOVOLOG) 1 VIAL SQ SCH ×3 (06:06→16:46)
[2018-06-15] MEDS: metFORMIN HCL 500 MG TABLET (FP) PO SCH ×2 (06:07→16:46)
[2018-06-15] MEDS ORDERED: GLIMEPIRIDE 2 MG TABLET (FP) PO SCH (07:00)
[2018-06-15] MEDS: MULTIVITAMINS (DAILY MVI) TABLET (FP) PO SCH (09:54)
[2018-06-15] MEDS: ENOXAPARIN NA (PORCINE) 30 MG/0.3 ML DISP.SYRIN SQ SCH (09:54)
[2018-06-15] MEDS: MUPIROCIN 2% TOPICAL OINTMENT 22 GM TUBE TP SCH (09:54)
--- NOTE | 2018-06-15 09:58 | DS ---
Physical Examination Vital Signs: Vital Signs Temperature 97.8 F 06/15/18 06:00 Pulse Rate 74 06/15/18 06:00 Respiratory Rate 18 06/15/18 06:00 Blood Pressure 123/81 06/15/18 06:00 O2 Sat by Pulse Oximetry (%) 100 06/14/18 21:00 Findings/Remarks: pt seen/ examined. comfortable. No new issues Constitutional: Yes: No Distress, Calm Eyes: Yes: Conjunctiva Clear Neck: Yes: Supple Cardiovascular: Yes: Regular Rate and Rhythm Respiratory: Yes: CTA Bilaterally Gastrointestinal: Yes: Soft Edema: No Labs: CBC, BMP 06/12/18 08:10 06/12/18 08:10 Discharge Summary Reason For Visit: CELLULITIS OF RIGHT FOOT Current Active Problems Cellulitis of right foot (Acute) Diabetes (Acute) Hospital Course: Admitted for foot infection likely Osteo MRI of the right foot was done--Marrow edema ID followed ID recommending antibiotics for 5 weeks PICC line to be instituted today Discharge home after that follow up with PMD In week Medications reconciled Discussed with nursing staff also patient in agreement Condition: Fair - Instructions Diet, Activity, Other Instructions: abx x 5 weeks as per i/d Disposition: HOME - Home Medications Comprehensive Discharge Medication List: Ambulatory Orders Cholecalciferol (Vitamin D3) [Vitamin D3] 1,000 unit PO DAILY 06/09/18 Glimepiride [Amaryl -] 4 mg PO DAILY@0700 06/09/18 Metformin HCl [Glucophage] 500 mg PO BID 06/09/18 Multivit-Min/Iron Fum/Folic AC [Zkzyn-Wlqacta-Hyeiktrf Tablet] 1 each PO DAILY 06/09/18 Mupirocin Ointment [Bactroban Ointment (For Decolonization) -] 1 applic TP BID 06/09/18 Zinc 50 mg PO DAILY 06/09/18 Glimepiride [Amaryl -] 2 mg PO DAILY@0700 #30 tablet 06/15/18 Mupirocin Ointment [Bactroban 2% Ointment -] 1 applic TP DAILY #1 applic Polyethylene Glycol 3350 [Miralax 119 gm Btl -] 17 gm PO DAILY PRN bottle 06/15
--- NOTE | 2018-06-15 12:16 | PN ---
Progress Note, Physician History of Present Illness: doing well no issues dressing intact - Current Medication List Current Medications: Active Medications Acetaminophen (Tylenol -) 650 mg PO Q6H PRN PRN Reason: FEVER Last Admin: 06/10/18 20:37 Dose: 650 mg Enoxaparin Sodium (Lovenox -) 30 mg SQ DAILY [facility] Last Admin: 06/15/18 09:54 Dose: 30 mg Glimepiride (Amaryl -) 2 mg PO DAILY@0700 [facility] Last Admin: 06/15/18 06:07 Dose: 2 mg Vancomycin HCl 1,500 mg/ (Sodium Chloride) 500 mls @ 250 mls/hr IVPB DAILY@ 1600 [facility] Last Admin: 06/14/18 19:25 Dose: 250 mls/hr Insulin Aspart (Novolog Vial Sliding Scale -) 1 vial SQ HS [facility]; Protocol Last Admin: 06/14/18 22:11 Dose: Not Given Insulin Aspart (Novolog Vial Sliding Scale -) 1 vial SQ TIDAC [facility]; Protocol Last Admin: 06/15/18 11:43 Dose: Not Given Metformin HCl (Glucophage -) 500 mg PO BIDAC [facility] Last Admin: 06/15/18 06:07 Dose: 500 mg Multivitamins/Minerals/Vitamin C (Tab-A-Vit -) 1 tab PO DAILY [facility] Last Admin: 06/15/18 09:54 Dose: 1 tab Mupirocin (Bactroban 2% Ointment -) 1 applic TP DAILY [facility] Last Admin: 06/15/18 09:54 Dose: 1 applic Polyethylene Glycol (Miralax (For Daily Use) -) 17 gm PO DAILY PRN PRN Reason: CONSTIPATION - Objective Vital Signs: Vital Signs Temperature 98.1 F 06/15/18 10:00 Pulse Rate 79 06/15/18 10:00 Respiratory Rate 20 06/15/18 10:00 Blood Pressure 138/64 06/15/18 10:00 O2 Sat by Pulse Oximetry (%) 100 06/14/18 21:00 Constitutional: Yes: No Distress, Calm Cardiovascular: Yes: Regular Rate and Rhythm Respiratory: Yes: Regular, CTA Bilaterally Gastrointestinal: Yes: Normal Bowel Sounds, Soft Musculoskeletal: Yes: Other Extremities: Yes: Other Wound/Incision: Yes: Dressing Dry and Intact Neurological: Yes: Alert, Oriented Psychiatric: Yes: Alert, Oriented Labs: CBC, BMP 06/12/18 08:10 06/12/18 08:10 Assessment/Plan Problem List - Problems (1) Cellulitis of right foot Code(s): L03.115 - CELLULITIS OF RIGHT LOWER LIMB (2) Diabetic foot ulcer Code(s): E11.621 - TYPE 2 DIABETES MELLITUS WITH FOOT ULCER; L97.509 - NON- PRESSURE CHRONIC ULCER OTH PRT UNSP FOOT W UNSP SEVERITY (3) Hyperglycemia Code(s): R73.9 - HYPERGLYCEMIA, UNSPECIFIED (4) Uncontrolled type 2 diabetes mellitus Code(s): E11.65 - TYPE 2 DIABETES MELLITUS WITH HYPERGLYCEMIA (5) CKD stage 3 due to type 2 diabetes mellitus Code(s): E11.22 - TYPE 2 DIABETES MELLITUS W DIABETIC CHRONIC KIDNEY DISEASE; N18.3 - CHRONIC KIDNEY DISEASE, STAGE 3 (MODERATE) osteo of the left foot spoke with the patient and told her she will need iv abx for at least 5 more weeks plan continue abx all results noted continue vanco for another 5 weeks wound care rest as per the team
[2018-06-15 14:35] VITALS: BP 147/74; PULSE 76; TEMP 98.3
[2018-06-15] MEDS: VANCOMYCIN HCL 1,500 MG in SODIUM CHLORIDE 500 ML IVPB SCH (15:23)
== END 2018-06-15 18:36 | disposition home or self-care (01) | DRG 638 ==
LOC: JER 14:39 → JERBED 15:33 → J7W 06-10 03:56
PROVIDERS: ADMIT Internal Medicine; ATTEND Internal Medicine
PROC: 02HV33Z Insertion of Infusion Device into Superior Vena Cava, Percutaneous Approach (ICD-10-PCS; principal; 2018-06-15)
PROC: B518ZZA Fluoroscopy of Superior Vena Cava, Guidance (ICD-10-PCS; 2018-06-15)
DX: E11.69 Type 2 diabetes mellitus with other specified complication (principal); L97.528 Non-pressure chronic ulcer of other part of left foot with other specified severity; L97.518 Non-pressure chronic ulcer of other part of right foot with other specified severity; L03.116 Cellulitis of left lower limb; M86.8X7 Other osteomyelitis, ankle and foot; E11.621 Type 2 diabetes mellitus with foot ulcer; E11.65 Type 2 diabetes mellitus with hyperglycemia; I12.9 Hypertensive chronic kidney disease with stage 1 through stage 4 chronic kidney disease, or unspecified chronic kidney disease; E11.22 Type 2 diabetes mellitus with diabetic chronic kidney disease; N18.3 Chronic kidney disease, stage 3 (moderate); Z85.3 Personal history of malignant neoplasm of breast; Z91.14 Patient's other noncompliance with medication regimen
CPT/HCPCS: 11042; 11045; 36415; 36569; 71045-TC-FY; 73630-TC-RT-FY; 73718-TC-RT; 77001-TC-FY; 80048; 80053; 82962; 83036; 85025; 85651; 86140; 87070; 87205; 93005; 93010; 99284-25; C1751; G0480